=== PATIENT | male | born 1950 | race Caucasian/White ===

== ENCOUNTER 2023-08-12 12:33 | Emergency (ER) | payer MEDICARE, SELFPAY ==
[2023-08-12 12:34] VITALS: BP 137/76; PULSE 89; RESP 18; TEMP 36.9; O2SAT 97; BMI 27.2
--- NOTE | 2023-08-12 12:40 | PC.NURSE ---
DR DALTON AT BEDSIDE
--- NOTE | 2023-08-12 12:41 | XR_ITS ---
PROCEDURE INFORMATION: Exam: XR Chest Exam date and time: 08/12/2023 12:42 PM Age: 72 years old Clinical indication: Shortness of breath; Additional info: SOB TECHNIQUE: Imaging protocol: Radiologic exam of the chest. Views: 1 view. COMPARISON: No relevant prior studies available. FINDINGS: Lungs: Coarse reticulonodular opacities and peribronchial thickening are present in both lungs. No confluent airspace consolidation or nodules. Pleural spaces: No pleural effusion. No pneumothorax. Heart/Mediastinum: No abnormalities. No cardiomegaly. No pulmonary vascular congestion. Bones/joints: No fractures or bone lesions. IMPRESSION: Coarse interstitial opacities in both lungs could be due to viral or atypical pneumonia or chronic interstitial lung disease.
[2023-08-12 12:46] LABS: Influenza A, PCR Not Detected (NotDetected); Influenza B, PCR Not Detected (NotDetected)
--- NOTE | 2023-08-12 12:48 | PC.NURSE ---
XR AT BEDSIDE
--- NOTE | 2023-08-12 12:49 | HMH.EDGENADL ---
Discharge Plan Disposition Patient Disposition: Home, Self-Care Prescriptions Prescriptions: New doxycycline hyclate 100 mg capsule 100 mg PO BID 7 Days Qty: 14 0RF Referrals Follow up/Referrals: Provider,Referral, MD [Referring] - See instructions Activity Restrictions/Add. Instructions Additional Instructions/Restrictions: At this time it was felt you are safe to be discharged home. If new or worsening symptoms please do not hesitate to return the emergency department. Please follow-up with your family doctor as soon as you are able, midweek at the latest. Your family doctor needs to recheck your kidney function which was slightly off today but not dangerous and your sugar which was elevated. Please take your antibiotics as prescribed. With your inhaler at home please take 4 puffs every 3 hours as needed for wheezing. Clinical Impressions Clinical Impression: Acute interstitial pneumonia, Creatinine elevation, Hyperglycemia Discharge ED Provider: Amos Khalil General Adult HPI General Chief complaint: Upper Respiratory Infection Stated complaint: cough, congestion, h/a Time Seen by Provider: 08/12/23 12:40 Mode of Arrival: Ambulatory Source of Information: Patient Limitations: No Limitations Description of Symptoms (Recalled from ER Triage Doc. by RN): Patient reports cough and congestion for two weeks. States he was seen two weeks ago in [place] and diagnosed with Bronchitis. States they prescribed him steroids for three days and he just hasn't gotten any better. History of Present Illness HPI narrative: Patient is a 72-year-old male with no pertinent past medical history who presents emergency department for evaluation of shortness of breath and cough. Onset was subacute, over the last 2 weeks. Patient has had persistent cough and congestion. No chest pain, no vomiting, no diarrhea. He presented to outside clinic where he was diagnosed with bronchitis given 3 days of steroids for which his symptoms are refractory. Due to persistent symptoms he presents here for continued evaluation. Related Data Previous Rx's Medication Instructions Recorded doxycycline hyclate 100 mg capsule 100 mg PO BID 7 days #14 caps 08/12/23 Allergies Allergy/AdvReac Type Severity Reaction Status Date / Time No Known Allergies Allergy Verified 08/12/23 12:45 [facility] Disclaimer: The information contained in this section may have been updated after the patient was seen, as this information can be updated by other users. 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 Smoking Status: Unknown if ever smoked alcohol intake: never current occupational status: other Travel in the last 8 weeks: None ROS Obtained: Yes Systems reviewed as appropriate & no additional complaints except as documented Physical Exam General General appearance: alert and in no apparent distress Head Head exam: atraumatic and normocephalic Eye Eye exam: Present PERRL and EOMI ENT ENT exam: Present mucous membranes moist Neck Neck exam: Present normal inspection Chest Chest inspection: Present normal inspection and symmetric chest wall rise Respiratory Respiratory exam: Present wheezes (Posterior); Absent respiratory distress Cardiovascular Cardiovascular exam: Present normal rhythm and tachycardia Abdominal Exam Abdominal exam: Present soft Extremities Exam Extremities exam: Present normal inspection Neurological Exam Neurological exam: Present alert Psychiatric Psychiatric exam: Present normal affect Skin Skin exam: Present warm and dry Medical Decision Making Chris Inquiry Pt receiving controlled substance: No Vital Signs: 08/12/23 12:34 Temperature 98.4 F Temperature Source Oral Pulse Rate [Radial] 89 Respiratory Rate 18 Blood Pressure [Right Arm] 137/76 Blood Pressure Mean [Right Arm] 96 Blood Pressure Source [Right Arm] Automatic Cuff Blood Pressure Position [Right Arm] Sitting 02 Sat by Pulse Oximetry 97 Oxygen Delivery Method Room Air Lab Data Lab Results 08/12/23 13:00: WBC 10.9 H, RBC 5.03, Hgb 15.9, Hct 48.1, MCV 95.7 H, MCH 31.6 H, MCHC 33.0, RDW 13.8, Plt Count 192, MPV 9.8, Neut % (Auto) 77.6, Lymph % (Auto) 14.8, Gaston % (Auto) 5.4, Eos % (Auto) 2.0, Baso % (Auto) 0.2, Neut # (Auto) 8.4 H, Lymph # (Auto) 1.6, Gaston # (Auto) 0.6, Eos # (Auto) 0.2, Baso # (Auto) 0.0, Sodium 135 L, Potassium 4.1, Chloride 103, Carbon Dioxide 31 H, Anion Gap 5.1, BUN 11, Creatinine 1.40 H, Estimated Creat Clear 59, Estimated GFR 50 L, Est GFR ( Amer) 60, Glucose 262 H, Calcium 9.1, Total Bilirubin 1.1, AST 24, ALT 26, Alkaline Phosphatase 125, Troponin I < 0.01, Total Protein 7.3, Albumin 3.9, Globulin 3.4 H, Albumin/Globulin Ratio 1.1 08/12/23 13:00 08/12/23 13:00 Orders (Tests/Meds): ED MEDICATIONS Discontinued Medications Generic Name Dose Route Start Last Admin Trade Name Neville PRN Reason Stop Dose Admin Albuterol/Ipratropium 3 ml 08/12/23 12:48 08/12/23 13:03 Ipratropium/Albuterol 3 Ml Neb IH 08/12/23 12:49 3 ml ONCE ONE Administration Methylprednisolone Sodium Succinate 125 mg 08/12/23 12:48 08/12/23 13:03 Methylprednisolone Sod Succ 125mg Vial IV 08/12/23 12:49 125 mg ONCE ONE Administration ORDERS Category Date Time Status CXR --portable [XR chest portable] Stat Exams 08/12/23 12:41 Completed CBC w/Auto Diff [Complete Blood Count Auto Diff] Stat Lab 08/12/23 13:00 Completed CMP [Comprehensive Metabolic Panel] Stat Lab 08/12/23 13:00 Completed Rapid PCR Covid and Flu A/B Stat Lab 08/12/23 12:41 Received Trop I [Troponin I] Stat Lab 08/12/23 13:00 Completed Troponin I Q3H Lab 08/12/23 16:00 Ordered Troponin I Q3H Lab 08/12/23 19:00 Ordered EKG Request [ECG Request] Stat Y 08/12/23 12:48 Ordered ECG Data Tracing #1: Independently interpreted by me, rate is 100, rhythm is regular, no ST elevation in anatomical contiguous leads, slight [place] depression in the inferior leads. QTc 372. Medical Decision Narrative: In summary patient is a 72-year-old male with past medical history described above who presents emergency department for evaluation of shortness of breath and cough. Patient is hemodynamically stable nontoxic-appearing upon arrival, afebrile. Patient is slightly tachycardic. Differential diagnosis includes bronchitis, pneumonia, serial viral infections, atypical ACS, among others. Workup will be conducted with hematologic labs, chest x-ray, EKG, single troponin, viral swab. Initial inventions include DuoNeb, methylprednisolone. Workup reviewed by me, hematologic labs remarkable for hyperglycemia without elevated anion gap. This may be secondary to steroid administration however upon repeat questioning patient has been on metformin previously and is not currently. Patient has elevated creatinine of undetermined baseline which is nonactionable has it is only mild with no critical electrolyte abnormality. Initial troponin blood type limit. Patient does not have chest pain therefore second troponin is not indicated. Chest x-ray informally interpreted by me, interstitial pneumonia. Given this patient will be discharged with a course of doxycycline, has a metered-dose inhaler at home. Critical Care Critical Care Time Critical Care Time: No
--- NOTE | 2023-08-12 12:56 | ECG_ITS ---
APPROVED REPORT Exam: Resting ECG HR:100 bpm ECG Measurements Heart Rate 100 AXES NH 170 P 53 QRSd 81 QRS 21 QT 315 T 61 QTc 372 Conclusion SINUS TACHYCARDIA NONSPECIFIC T-WAVE ABNORMALITY ABNORMAL RHYTHM ECG UNCONFIRMED REPORT Electronically signed by : Ky Malagon MD 08/13/2023 15:55:00
[2023-08-12] MEDS: METHYLPREDNISOLONE SOD SUCC 125MG VIAL 125 MG IV (13:03)
[2023-08-12] MEDS: IPRATROPIUM/ALBUTEROL 3 ML NEB IH (13:03)
[2023-08-12 13:10] LABS: Basophils % 0.2 % (0.1-2.0); Eosinophils # 0.2 K/mm3 (0.0-0.4); Hematocrit 48.1 % (42.0-52.0); Hemoglobin 15.9 g/dL (14.1-18.0); Lymphocytes # 1.6 K/mm3 (0.7-4.5); Lymphocytes % 14.8 % (10-50); Mean Corpuscular Hemoglobin 31.6 pg (27.0-31.2); Mean Corpuscular Volume 95.7 fl (80-94); Mean Platelet Volume 9.8 fl (7.4-10.4); Monocytes # 0.6 K/mm3 (0.1-1.0); Monocytes % 5.4 % (1.7-9.3); Neutrophils # 8.4 K/mm3 (1.8-7.8); Neutrophils % 77.6 % (37.0-80.0); Platelet Count 192 K/mm3 (142-424); Red Blood Count 5.03 M/mm3 (4.60-6.20); Red Cell Distribution Width 13.8 % (11.5-17.5); White Blood Count 10.9 K/mm3 (4.8-10.8)
[2023-08-12 13:15] LABS: Chloride 103 mmol/L (98-107); Sodium 135 mmol/L (136-145)
[2023-08-12 13:16] LABS: Potassium 4.1 mmoL/L (3.5-5.1)
[2023-08-12 13:18] LABS: Alanine Aminotransferase 26 U/L (12-78); Albumin Level 3.9 g/dl (3.5-5.0); Albumin/Globulin Ratio 1.1 (1.1-1.8); Alkaline Phosphatase 125 U/L (38-126); Anion Gap 5.1 mEq/L (5-15); Aspartate Amino Transferase 24 U/L (17-59); Bilirubin,Total 1.1 mg/dl (0.2-1.3); Blood Urea Nitrogen 11 mg/dl (9-20); Calcium 9.1 mg/dl (8.4-10.2); Carbon Dioxide 31 mmol/L (22.0-30.0); Creatinine Clearance Estimated 59 mL/min (50-200); Estimated Glomerular Filt Rate 50 ml/min (>60); GFR (African American) 60 ML/MIN (>60); Globulin 3.4 g/dL (1.3-3.2); Glucose 262 mg/dl (74-100); Total Protein,Serum 7.3 g/dl (6.3-8.2)
--- NOTE | 2023-08-12 13:25 | PC.NURSE ---
Rounded on pt. No needs or complaints voiced. Call light within reach.
[2023-08-12 13:31] LABS: Troponin I < 0.01 ng/ml (0.00-0.034)
--- NOTE | 2023-08-12 13:37 | PC.NURSE ---
DR DALTON AT BEDSIDE TO UPDATE PT ON POC
[2023-08-12 13:55] LABS: Coronavirus 19, PCR Detected (NotDetected)
[2023-08-12 13:58] VITALS: BP 126/72; PULSE 82; RESP 20; TEMP 36.7; O2SAT 99
== END 2023-08-12 13:59 | disposition home or self-care (01) ==
PROVIDERS: Emergency Provider Emergency Medicine; PCP Nurse Practitioner Family
DX: J18.9 Pneumonia, unspecified organism (principal); R94.4 Abnormal results of kidney function studies; R73.9 Hyperglycemia, unspecified; R05.9 Cough, unspecified; R09.81 Nasal congestion; R06.02 Shortness of breath
CPT/HCPCS: 71045; 80053; 84484; 85025; 87636; 93005; 96374; 99285

== ENCOUNTER 2023-10-11 16:03 | Outpatient (CLI) | payer MEDICARE, SELFPAY ==
--- NOTE | 2023-10-11 16:08 | XR_ITS ---
FINAL REPORT TECHNIQUE: Chest PA & Lateral CLINICAL HISTORY: PNEUMONIA COMPARISON: 09/06/2023 FINDINGS: 2 views of the chest were performed. The heart size is mildly enlarged. The mediastinum is within normal limits. There is no acute cardiopulmonary process. There is coarse interstitial opacity at the lung bases, likely chronic. There are no pleural effusions. There is no pneumothorax. The bony thorax appears intact. IMPRESSION: Probable chronic coarse interstitial opacity at the lung bases. Reviewed, Interpreted and Dictated by Buzz Brothers MD Transcribed by Sania Eli Authenticated and [facility]
== END 2023-10-11 23:59 | disposition home or self-care (01) ==
LOC: RAD 16:04
PROVIDERS: PCP Nurse Practitioner Family; Visit Provider Nurse Practitioner Family
DX: J18.9 Pneumonia, unspecified organism (principal); Z87.891 Personal history of nicotine dependence
CPT/HCPCS: 71046

== ENCOUNTER 2023-10-18 16:18 | Emergency (ER) | payer MEDICARE, SELFPAY ==
[2023-10-18 17:40] VITALS: BP 130/69; PULSE 64; RESP 19; TEMP 36.9; O2SAT 97; BMI 32.5
[2023-10-18 18:12] LABS: UTC Strep Screen (Rapid) Negative (Negative)
--- NOTE | 2023-10-18 18:19 | EXP.UTC ---
Discharge Plan Disposition Patient Disposition: Home, Self-Care Condition: Good Prescriptions Prescriptions: New amoxicillin 500 mg tablet 500 mg PO BID 10 Days Qty: 20 0RF No Action atorvastatin 40 mg tablet 40 mg PO DAILY Patient Comments: TAKE 1 TABLET BY MOUTH EVERY DAY AT NIGHT olanzapine [Zyprexa] 5 mg tablet 5 mg PO DAILY Patient Comments: 1 tablet by mouth every night hydrocodone-acetaminophen 7.5-325 mg tablet See Rx Instructions .ROUTE .COMPLEX Rx Instructions: see rx levothyroxine [Synthroid] 125 mcg tablet 125 mcg PO DAILY Patient Comments: TAKE ONE TABLET BY MOUTH EVERY MORNING albuterol sulfate 90 mcg/actuation HFA aerosol inhaler See Rx Instructions .ROUTE .COMPLEX Patient Comments: INHALE 2 PUFFS INHALATION ROUTE EVERY 6 HOURS Rx Instructions: INHALE 2 PUFFS INHALATION ROUTE EVERY 6 HOURS Referrals Follow up/Referrals: Provider,Referral, MD [Primary Care Provider] - See instructions Activity Restrictions/Add. Instructions Additional Instructions/Restrictions: Start antibiotics today be sure to take it as ordered with the full length of time although you should start feeling better in 24-48 hours. Change toothbrush and toothpaste 24-48 hours after starting antibiotics Tylenol or Motrin as needed for fever or pain Encourage fluids, water, Gatorade, Powerade, try cold fluids, popsicles, ice cream will make it feel better You are contagious for 24 hours. Avoid kissing anyone, no eating or drinking after anyone. You are contagious. Follow-up the ER for new or worsening symptoms or no noticeable improvement over the next 24-48 hours. Follow-up with PCP this week. Clinical Impressions Clinical Impression: Strep sore throat Instructions Patient Instructions: DI for Strep Throat Discharge ED Provider: Nydia ([facility] [place])Kiera [facility] [place] HPI General Stated complaint: throat sores Mode of Arrival: Ambulatory Source of Information: Patient Limitations: No Limitations Time Seen by Provider: 10/18/23 18:19 Description of Symptoms (Recalled from Triage Doc. by RN): Pt's symptoms are sore throat. HEENT Symptoms (Recalled from RN notes): Yes Resp Symptoms (Recalled from RN notes): No Skin Symptoms (Recalled from RN notes): No MS Symptoms (Recalled from RN notes): No Functional Status (Recalled from RN notes): n/a History of Present Illness Provider Complaint: 73 yr old male presents for sore throat, grandchild has strep Related Data Home Medications Medication Instructions Recorded Confirmed albuterol sulfate 90 mcg/actuation See Rx Instructions .Route .COMPLEX 10/18/23 10/18/23 aerosol inhaler atorvastatin 40 mg tablet 40 mg PO DAILY 10/18/23 10/18/23 hydrocodone 7.5 mg-acetaminophen See Rx Instructions .Route .COMPLEX 10/18/23 10/18/23 325 mg tablet levothyroxine 125 mcg tablet 125 mcg PO DAILY 10/18/23 10/18/23 (Synthroid) olanzapine 5 mg tablet (Zyprexa) 5 mg PO DAILY 10/18/23 10/18/23 Previous Rx's Medication Instructions Recorded amoxicillin 500 mg tablet 500 mg PO BID 10 days #20 tabs 10/18/23 Allergies Allergy/AdvReac Type Severity Reaction Status Date / Time No Known Allergies Allergy Verified 10/18/23 17:52 Worker's Comp Is this a Worker's Comp case?: No [facility] Disclaimer: The information contained in this section may have been updated after the patient was seen, as this information can be updated by other users. 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 , [employer]) Smoking Status: Unknown if ever smoked alcohol intake: never current occupational status: other Travel in the last 8 weeks: None ROS Obtained: Yes All systems reviewed & no additional complaints except as documented Constitutional Constitutional: Reports system reviewed and no additional complaints, except as documented Eyes Eyes: Reports system reviewed and no additional complaints, except as documented ENT Ears, Nose, Mouth, and Throat: Reports system reviewed and no additional complaints, except as documented, Reports as per HPI and Reports sore throat Cardiovascular Cardiovascular: Reports system reviewed and no additional complaints, except as documented Respiratory Respiratory: Reports system reviewed and no additional complaints, except as documented Gastrointestinal Gastrointestingal: Reports system reviewed and no additional complaints, except as documented Musculoskeletal Musculoskeletal: Reports system reviewed and no additional complaints, except as documented Integumentary/Breasts Skin/Breast: Reports system reviewed and no additional complaints, except as documented Neurologic Neurologic: Reports system reviewed and no additional complaints, except as documented Endocrine Endocrine: Reports system reviewed and no additional complaints, except as documented Hematologic/Lymphatic Henatologic/Lymphatic: Reports system reviewed and no additional complaints, except as documented Allergic/Immunologic Allergic/Immunologic: Reports system reviewed and no additional complaints, except as documented Physical Exam General General appearance: alert and in no apparent distress Head Head exam: atraumatic Eye Eye exam: Present normal appearance and PERRL ENT ENT exam: Present mucous membranes moist and TM's normal bilaterally Expanded ENT Exam Throat exam: Present tonsillar erythema and tonsillar exudate Respiratory Respiratory exam: Present normal lung sounds bilaterally Cardiovascular Cardiovascular exam: Present regular rate and normal rhythm Neurological Exam Neurological exam: Present alert and oriented X3 Skin Skin exam: Present warm and intact Medical Decision Making Medical Records Medical records reviewed: Yes I reviewed the patient's medical records. Chris Inquiry Pt receiving controlled substance: No Chris was queried for this patient: No Vital Signs: 10/18/23 17:40 Temperature 98.5 F Temperature Source Oral Pulse Rate [Right Radial] 64 Respiratory Rate 19 Blood Pressure [Right Arm] 130/69 Blood Pressure Mean [Right Arm] 89 Blood Pressure Source [Right Arm] Automatic Cuff Blood Pressure Position [Right Arm] Sitting 02 Sat by Pulse Oximetry 97 Oxygen Delivery Method Room Air Lab Data Lab results reviewed: Yes I reviewed the patient's lab results. Lab Results 10/18/23 17:39: Strep Scn Rapid Clinic Negative Orders (Tests/Meds): ORDERS Category Date Time Status Strep Screen Confirmation Stat Micro 10/18/23 17:39 Received
[2023-10-18 18:39] VITALS: BP 130/69; PULSE 64; RESP 19; TEMP 36.9; O2SAT 97
== END 2023-10-18 18:39 | disposition home or self-care (01) ==
PROVIDERS: Emergency Provider Nurse Practitioner Family
DX: J02.0 Streptococcal pharyngitis (principal); R07.0 Pain in throat
CPT/HCPCS: 87880; 99204; 99212; G0463

== ENCOUNTER 2023-10-22 16:57 | Emergency (ER) | payer MEDICARE, SELFPAY ==
[2023-10-22 16:58] VITALS: BP 148/88; PULSE 71; RESP 19; TEMP 36.8; O2SAT 98; BMI 27.5
--- NOTE | 2023-10-22 17:08 | XR_ITS ---
PROCEDURE INFORMATION: Exam: XR Chest Exam date and time: 10/22/2023 5:17 PM Age: 73 years old Clinical indication: Shortness of breath; Additional info: Shortness of breath, history pna recently treated TECHNIQUE: Imaging protocol: Radiologic exam of the chest. Views: 1 view. COMPARISON: CR XR CHEST 2V 10/11/2023 4:10 PM FINDINGS: Lungs: Interstitial opacities bilaterally concerning for interstitial pneumonia. Pleural spaces: Unremarkable. No pleural effusion. No pneumothorax. Heart/Mediastinum: Unremarkable. No cardiomegaly. Bones/joints: Unremarkable. IMPRESSION: Moderate interstitial pneumonia
[2023-10-22 17:10] VITALS: BMI 27.6
--- NOTE | 2023-10-22 17:11 | ECG_ITS ---
APPROVED REPORT Exam: Resting ECG HR:76 bpm ECG Measurements Heart Rate 76 AXES AR 205 P 46 QRSd 90 QRS 36 QT 358 T 38 QTc 389 Conclusion SINUS RHYTHM WITH OCCASIONAL VENTRICULAR PREMATURE COMPLEXES Electronically signed by : MAC MANCILLA, 10/22/2023 18:09:21
[2023-10-22 17:21] LABS: Basophils % 0.3 % (0.1-2.0); Chloride 111 mmol/L (98-107); Eosinophils # 0.3 K/mm3 (0.0-0.4); Eosinophils % 2.8 % (0.1-12.0); Hematocrit 46.6 % (42.0-52.0); Hemoglobin 15.7 g/dL (14.1-18.0); Lymphocytes # 2.7 K/mm3 (0.7-4.5); Lymphocytes % 24.2 % (10-50); Mean Corpuscular HGB Conc 33.6 g/dL (31.8-35.4); Mean Corpuscular Hemoglobin 30.7 pg (27.0-31.2); Mean Corpuscular Volume 91.3 fl (80-94); Mean Platelet Volume 9.8 fl (7.4-10.4); Monocytes # 0.5 K/mm3 (0.1-1.0); Monocytes % 4.4 % (1.7-9.3); Neutrophils # 7.6 K/mm3 (1.8-7.8); Neutrophils % 68.3 % (37.0-80.0); Platelet Count 217 K/mm3 (142-424); Red Cell Distribution Width 14.1 % (11.5-17.5); Sodium 141 mmol/L (136-145); White Blood Count 11.1 K/mm3 (4.8-10.8)
[2023-10-22 17:23] LABS: Alanine Aminotransferase 22 U/L (12-78); Alkaline Phosphatase 128 U/L (38-126); Aspartate Amino Transferase 29 U/L (17-59); Bilirubin,Total 0.7 mg/dl (0.2-1.3); Blood Urea Nitrogen 11 mg/dl (9-20); Creatinine Clearance Estimated 69 mL/min (50-200); Estimated Glomerular Filt Rate 60 ml/min (>60); GFR (African American) 72 ML/MIN (>60)
[2023-10-22 17:24] LABS: Albumin/Globulin Ratio 1.3 (1.1-1.8); Calcium 9.6 mg/dl (8.4-10.2); Carbon Dioxide 25 mmol/L (22.0-30.0); Globulin 3.1 g/dL (1.3-3.2); Glucose 102 mg/dl (74-100); Total Protein,Serum 7.1 g/dl (6.3-8.2)
[2023-10-22 17:30] VITALS: BP 134/86; PULSE 71; O2SAT 96
[2023-10-22 17:37] LABS: Troponin I < 0.01 ng/ml (0.00-0.034)
[2023-10-22 18:00] VITALS: BP 132/77; PULSE 66; O2SAT 97
--- NOTE | 2023-10-22 18:01 | [facility]H.EDCP ---
Discharge Plan Disposition Patient Disposition: Home, Self-Care Condition: Good Prescriptions Prescriptions: New doxycycline hyclate 100 mg capsule 100 mg PO Q12H 14 Days Qty: 28 0RF No Action atorvastatin 40 mg tablet 40 mg PO DAILY Patient Comments: TAKE 1 TABLET BY MOUTH EVERY DAY AT NIGHT olanzapine [Zyprexa] 5 mg tablet 5 mg PO DAILY Patient Comments: 1 tablet by mouth every night hydrocodone-acetaminophen 7.5-325 mg tablet See Rx Instructions .ROUTE .COMPLEX Rx Instructions: see rx levothyroxine [Synthroid] 125 mcg tablet 125 mcg PO DAILY Patient Comments: TAKE ONE TABLET BY MOUTH EVERY MORNING albuterol sulfate 90 mcg/actuation HFA aerosol inhaler See Rx Instructions .ROUTE .COMPLEX Patient Comments: INHALE 2 PUFFS INHALATION ROUTE EVERY 6 HOURS Rx Instructions: INHALE 2 PUFFS INHALATION ROUTE EVERY 6 HOURS amoxicillin 500 mg tablet 500 mg PO BID 10 Days Qty: 20 0RF Referrals Follow up/Referrals: Clara Sawant APRN [Primary Care Provider] - See instructions Activity Restrictions/Add. Instructions Additional Instructions/Restrictions: Take doxycycline as prescribed and follow-up closely with your primary care provider for continued evaluation and management, return for any new or worsening symptoms. Clinical Impressions Clinical Impression: Acute interstitial pneumonia Instructions Patient Instructions: Pneumonia-Adult Discharge ED Provider: Clara Bond HPI General Chief Complaint: Shortness of Breath/Dyspnea Stated Complaint: Dry mouth , SOA Time Seen by Provider: 10/22/23 17:01 Mode of Arrival: Family Vehicle Source of Information: Patient Limitations: No Limitations Description of Symptoms (Recalled from ER Triage Doc. by RN): Pt c/o sore throat, dry mouth, and cough for close to a month . States he was treated for PNA . States he was around a family member who was positive for strep and is currently being tx'ed with amoxicillin for that exsposure despite being negative on swab and culture. States he was also taken off his diabetic medicines a few months ago d/t losing too much weight . He has not been checking his blood sugars. Denies any fever, chest pain, or n/v/d. History of Present Illness HPI narrative: Patient is a 73-year-old male with past medical history hyperglycemia and acute interstitial pneumonia recently treated with a course of amoxicillin presenting with sore throat, cough for a month and shortness of breath. Patient states that he has had a cough for approximately 1 month and this was not worse today but his mouth seems to be dry prompting his presentation. He was recently treated for pneumonia with a course of amoxicillin and also for reported contact with strep positive family member despite his swab being negative. He was recently taken off of his metformin and is not on any other diabetic medications. He denies any fevers, chest pain, nausea, vomiting, diarrhea. Related Data Home Medications Medication Instructions Recorded Confirmed albuterol sulfate 90 mcg/actuation See Rx Instructions .Route .COMPLEX 10/18/23 10/18/23 aerosol inhaler atorvastatin 40 mg tablet 40 mg PO DAILY 10/18/23 10/18/23 hydrocodone 7.5 mg-acetaminophen See Rx Instructions .Route .COMPLEX 10/18/23 10/18/23 325 mg tablet levothyroxine 125 mcg tablet 125 mcg PO DAILY 10/18/23 10/18/23 (Synthroid) olanzapine 5 mg tablet (Zyprexa) 5 mg PO DAILY 10/18/23 10/18/23 Previous Rx's Medication Instructions Recorded amoxicillin 500 mg tablet 500 mg PO BID 10 days #20 tabs 10/18/23 doxycycline hyclate 100 mg capsule 100 mg PO Q12H 14 days #28 caps 10/22/23 Allergies Allergy/AdvReac Type Severity Reaction Status Date / Time No Known Allergies Allergy Verified 10/18/23 17:52 [facility] Disclaimer: The information contained in this section may have been updated after the patient was seen, as this information can be updated by other users. 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: Former smoker alcohol intake: never current occupational status: other Travel in the last 8 weeks: None ROS Obtained: Yes Systems reviewed as appropriate & no additional complaints except as documented Physical Exam General General appearance: alert, in no apparent distress and other (Occasional productive cough) Head Head exam: atraumatic and normocephalic Eye Eye exam: Present PERRL and EOMI ENT ENT exam: Present mucous membranes moist Chest Chest inspection: Present normal inspection and symmetric chest wall rise Respiratory Respiratory exam: Present normal lung sounds bilaterally; Absent respiratory distress Cardiovascular Cardiovascular exam: Present regular rate and normal rhythm Abdominal Exam Abdominal exam: Present soft; Absent tenderness Extremities Exam Extremities exam: Present normal inspection Neurological Exam Neurological exam: Present alert and oriented X3 Skin Skin exam: Present warm and dry HEART Score HEART Score HEART Score assessment performed?: Yes History (anamnesis): Slightly suspicious ECG: Normal Age: >65 years Risk factors: 1-2 risk factors Troponin: </= normal limit HEART Score: 3 Critical Care Critical Care Time Critical Care Time: No Medical Decision Making Medical Records Medical records reviewed: Yes I reviewed the patient's medical records. Chris Inquiry Pt receiving controlled substance: No Vital Signs Vital Signs: 10/22/23 16:58 Temperature 98.2 F Temperature Source Oral Pulse Rate [Left] 71 Respiratory Rate 19 Blood Pressure [Right Arm] 148/88 H Blood Pressure Mean [Right Arm] 108 Blood Pressure Source [Right Arm] Automatic Cuff 02 Sat by Pulse Oximetry 98 Oxygen Delivery Method Room Air Lab Data Lab results reviewed: Yes I reviewed the patient's lab results. Labs: Lab Results 10/22/23 17:09: WBC 11.1 H, RBC 5.10, Hgb 15.7, Hct 46.6, MCV 91.3, MCH 30.7, MCHC 33.6, RDW 14.1, Plt Count 217, MPV 9.8, Neut % (Auto) 68.3, Lymph % (Auto) 24.2, [place] % (Auto) 4.4, Eos % (Auto) 2.8, Baso % (Auto) 0.3, Neut # (Auto) 7.6, Lymph # (Auto) 2.7, [place] # (Auto) 0.5, Eos # (Auto) 0.3, Baso # (Auto) 0.0, Sodium 141, Potassium 4.0, Chloride 111 H, Carbon Dioxide 25, Anion Gap 9.0, BUN 11, Creatinine 1.20, Estimated Creat Clear 69, Estimated GFR 60, Est GFR ( Amer) 72, Glucose 102 H, Calcium 9.6, Total Bilirubin 0.7, AST 29, ALT 22, Alkaline Phosphatase 128 H, Troponin I < 0.01, Total Protein 7.1, Albumin 4.0, Globulin 3.1, Albumin/Globulin Ratio 1.3 10/22/23 17:09 10/22/23 17:09 Response Orders (Tests/Meds): ED MEDICATIONS Generic Name Dose Route Start Last Admin Trade Name Freq PRN Reason Stop Dose Admin Sodium Chloride 10 ml 10/22/23 17:11 Sodium Chloride 0.9% 10ml Flush Syringe IV 11/21/23 17:10 NEEDED PRN Maintain IV Site ORDERS Category Date Time Status XR chest portable Stat Exams 10/22/23 17:08 Taken CBC w/Auto Diff [Complete Blood Count Auto Diff] Stat Lab 10/22/23 17:09 Completed CMP [Comprehensive Metabolic Panel] Stat Lab 10/22/23 17:09 Completed Trop I [Troponin I] Stat Lab 10/22/23 17:09 Completed ECG Data Tracing #1: Attestation: I reviewed this ECG and interpreted as documented below: ECG Narrative: Normal sinus rhythm at a rate of 76 with occasional PVC, no acute ischemia or infarction ECG initial impression date: 10/22/23 ECG initial impression time: 17:05 Normal Sinus Rhythm: Yes MDM Narrative Medical Decision Narrative: Patient is a 73-year-old male with past medical history hyperglycemia and recent acute interstitial pneumonia status post treatment with amoxicillin now presenting with 1 month of cough now with worsening dry mouth. He denies any chest pain, fevers, chills, abdominal pain, nausea, vomiting. He denies any history of lung issues or cardiac issues, denies history of [place]. He is exposed to smoke in his household. Lung sounds present bilaterally without wheezing or rhonchi but he does have a frequent productive cough on exam. EKG performed at bedside on initial evaluation without acute ischemia or infarction and patient never did have complaint of chest pain. He is hemodynamically stable with oxygen saturation 94% on room air. Will obtain blood work and chest x-ray for further evaluation. CBC with slight leukocytosis to 11, CMP nonactionable, troponin negative and no need for repeat as he never did have complaint of chest pain despite 1 month history of cough and dry mouth. Notably he is not significant hyperglycemic on labs. Chest x-ray does seem to show a possible developing bronchitis per my read for which we will treat with course of doxycycline considering patient's history and symptoms as well as cough on exam. X-ray chest read concerning for interstitial pneumonia. He is 99% on room air and hemodynamically stable. Prescription for doxycycline sent to preferred pharmacy with first dose given here. To follow-up with PCP and discharged in stable condition.
--- NOTE | 2023-10-22 18:28 | PC.NURSE ---
DR MANCILLA AT BEDSIDE TO UPDATE PT AND FAMILY
[2023-10-22 18:30] VITALS: BP 137/75; PULSE 63; O2SAT 99
[2023-10-22] MEDS: DOXYCYCLINE HYCL 100 MG TABLET PO (18:35)
[2023-10-22 18:40] VITALS: BP 137/75; PULSE 64; RESP 18; TEMP 36.7; O2SAT 98
== END 2023-10-22 18:40 | disposition home or self-care (01) ==
PROVIDERS: Emergency Provider Emergency Medicine; PCP Nurse Practitioner Family
DX: J84.9 Interstitial pulmonary disease, unspecified (principal); I49.3 Ventricular premature depolarization; R06.02 Shortness of breath; R07.0 Pain in throat; R05.9 Cough, unspecified; Z87.891 Personal history of nicotine dependence
CPT/HCPCS: 71045; 80053; 84484; 85025; 93005; 99284

== ENCOUNTER 2024-03-06 16:30 | Emergency (ER) | payer MEDICARE, SELFPAY ==
[2024-03-06 16:32] VITALS: BP 136/81; PULSE 89; RESP 13; TEMP 36.7; O2SAT 96; BMI 27.5
--- NOTE | 2024-03-06 16:35 | ED_ITS ---
<Statement entered by Cristal Koch DO - 03/06/24 18:08> I was consulted by the MAGALIE, and we discussed the complexity of the problems being addressed. I approved the treatment and management plan for this patient's care in the emergency department, thus performing a substantive portion of the medical decision making. Cristal Koch DO Discharge Plan Disposition Patient Disposition: Home, Self-Care Condition: Good Prescriptions Prescriptions: No Action doxycycline hyclate 100 mg capsule 100 mg PO Q12H 14 Days Qty: 28 0RF atorvastatin 40 mg tablet 40 mg PO DAILY Patient Comments: TAKE 1 TABLET BY MOUTH EVERY DAY AT NIGHT olanzapine [Zyprexa] 5 mg tablet 5 mg PO DAILY Patient Comments: 1 tablet by mouth every night hydrocodone-acetaminophen 7.5-325 mg tablet See Rx Instructions .ROUTE .COMPLEX Rx Instructions: see rx levothyroxine [Synthroid] 125 mcg tablet 125 mcg PO DAILY Patient Comments: TAKE ONE TABLET BY MOUTH EVERY MORNING albuterol sulfate 90 mcg/actuation HFA aerosol inhaler See Rx Instructions .ROUTE .COMPLEX Patient Comments: INHALE 2 PUFFS INHALATION ROUTE EVERY 6 HOURS Rx Instructions: INHALE 2 PUFFS INHALATION ROUTE EVERY 6 HOURS amoxicillin 500 mg tablet 500 mg PO BID 10 Days Qty: 20 0RF Referrals Follow up/Referrals: Provider,Referral, MD [Primary Care Provider] - See instructions Activity Restrictions/Add. Instructions Additional Instructions/Restrictions: As we discussed follow the disimpaction form that I gave you and get a 32 ounce bottle of Gatorade putting 10 capfuls of MiraLAX then drink all of it. If no success please follow-up with your PCP for further workup. Clinical Impressions Clinical Impression: Constipation Qualifiers: Constipation type: unspecified constipation type Qualified Code(s): K59.00 - Constipation, unspecified Instructions Patient Instructions: DI for Constipation Print Language Print Language: Japanese Discharge ED Provider: Cristal Koch General Adult HPI General Chief complaint: PAIN Stated complaint: No Bowel movements Time Seen by Provider: 03/06/24 16:34 History of Present Illness HPI narrative: Patient presents for evaluation of constipation. Patient states that he has not had a bowel movement in the last 3 days. He however is tolerating both food and drink, passing flatus, has never had surgery on his abdomen. He denies fever chills hemoptysis hematochezia melena hematemesis hematuria. Related Data Home Medications ?Medication ?Instructions ?Recorded ?Confirmed albuterol sulfate 90 mcg/actuation See Rx Instructions .Route .COMPLEX 10/18/23 10/18/23 aerosol inhaler atorvastatin 40 mg tablet 40 mg PO DAILY 10/18/23 10/18/23 hydrocodone 7.5 mg-acetaminophen See Rx Instructions .Route .COMPLEX 10/18/23 10/18/23 325 mg tablet levothyroxine 125 mcg tablet 125 mcg PO DAILY 10/18/23 10/18/23 (Synthroid) olanzapine 5 mg tablet (Zyprexa) 5 mg PO DAILY 10/18/23 10/18/23 Previous Rx's ?Medication ?Instructions ?Recorded amoxicillin 500 mg tablet 500 mg PO BID 10 days #20 tabs 10/18/23 doxycycline hyclate 100 mg capsule 100 mg PO Q12H 14 days #28 caps 10/22/23 Allergies Allergy/AdvReac Type Severity Reaction Status Date / Time No Known Allergies Allergy Verified 10/18/23 17:52 [facility] Disclaimer: The information contained in this section may have been updated after the patient was seen, as this information can be updated by other users. 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 smoker alcohol intake: never current occupational status: other Travel in the last 8 weeks: None ROS Obtained: Yes Systems reviewed as appropriate & no additional complaints except as documented Physical Exam General General appearance: alert and in no apparent distress Respiratory Respiratory exam: Present normal lung sounds bilaterally Cardiovascular Cardiovascular exam: Present regular rate Rectal Exam Rectal exam: Present normal inspection and normal rectal tone; Absent hemorrhoids or mass Neurological Exam Neurological exam: Present alert and oriented X3 Medical Decision Making Medical Records Screening: Per USPSTF and CDC recommendations, given the prevalence of disease in our region, it is our hospital?s policy to screen for HIV and viral Hepatitis for all patients aged 18 and over and those with ongoing risk factors. Chris Inquiry Pt receiving controlled substance: No Vital Signs: 03/06/24 16:32 Temperature 98.0 F Temperature Source Oral Pulse Rate [Left Radial] 89 Respiratory Rate 13 Blood Pressure [Right Arm] 136/81 Blood Pressure Mean [Right Arm] 99 02 Sat by Pulse Oximetry 96 Oxygen Delivery Method Room Air Medical Decision Narrative: In summary patient is a 73-year-old male who presents to the emergency department for evaluation of constipation. Patient is hemodynamically stable upon arrival, afebrile. Physical exam is remarkable for a soft abdomen with normal bowel sounds with no rebound or guarding or rigidity, rectal exam shows no evidence of mass or hemorrhoid. Differential diagnosis includes constipation versus delayed colonic transit etc. Initial workup was considered but as patient has no red flags for any acute processes is deferred. As patient is not intolerant of oral intake is passing flatus has no previous surgical history on his abdomen and has tried no bowel regimen at home, no emergent workup is indicated. Given this patient is appropriate for discharge with the disimpaction sheet and instructions explained verbally by myself to the patient. Patient instructed to follow-up with PCP if no success. Patient to return to ER for any worsening signs or symptoms as needed. Critical Care Critical Care Time Critical Care Time: No
--- NOTE | 2024-03-06 16:47 | PC.NURSE ---
Reji PIMENTEL at BS for pt eval
[2024-03-06 16:58] VITALS: BP 130/80; PULSE 88; RESP 20; TEMP 36.7; O2SAT 98
== END 2024-03-06 16:59 | disposition home or self-care (01) ==
PROVIDERS: Emergency Provider Emergency Medicine
DX: K59.00 Constipation, unspecified (principal)
CPT/HCPCS: 99282

== ENCOUNTER 2024-04-10 18:55 | Emergency (ER) | payer MEDICARE, SELFPAY ==
[2024-04-10 18:57] VITALS: BP 136/67; PULSE 85; RESP 13; TEMP 36.8; O2SAT 95; BMI 27.5
--- NOTE | 2024-04-10 19:01 | ED_ITS ---
Discharge Plan Disposition Patient Disposition: Home, Self-Care Condition: Good Prescriptions Prescriptions: No Action doxycycline hyclate 100 mg capsule 100 mg PO Q12H 14 Days Qty: 28 0RF atorvastatin 40 mg tablet 40 mg PO DAILY Patient Comments: TAKE 1 TABLET BY MOUTH EVERY DAY AT NIGHT olanzapine [Zyprexa] 5 mg tablet 5 mg PO DAILY Patient Comments: 1 tablet by mouth every night hydrocodone-acetaminophen 7.5-325 mg tablet See Rx Instructions .ROUTE .COMPLEX Rx Instructions: see rx levothyroxine [Synthroid] 125 mcg tablet 125 mcg PO DAILY Patient Comments: TAKE ONE TABLET BY MOUTH EVERY MORNING albuterol sulfate 90 mcg/actuation HFA aerosol inhaler See Rx Instructions .ROUTE .COMPLEX Patient Comments: INHALE 2 PUFFS INHALATION ROUTE EVERY 6 HOURS Rx Instructions: INHALE 2 PUFFS INHALATION ROUTE EVERY 6 HOURS amoxicillin 500 mg tablet 500 mg PO BID 10 Days Qty: 20 0RF Referrals Follow up/Referrals: Leslie Sawant APRN [Primary Care Provider] - See instructions Activity Restrictions/Add. Instructions Additional Instructions/Restrictions: Please call [phone] which is the phone number for [facility] in [place] in the morning for an appointment. You may have to get a referral from your PCP. This discharge instructions also could serve as a referral if they require it. Additionally as we discussed you need to start taking MiraLAX daily along with Metamucil or other fiber supplement to have soft stool. Clinical Impressions Clinical Impression: Anal or rectal pain Instructions Patient Instructions: DI for Anal Fissure Print Language Print Language: Japanese Discharge ED Provider: Abimael Jain General Adult HPI General Chief complaint: PAIN Stated complaint: pain in buttocks Time Seen by Provider: 04/10/24 18:59 History of Present Illness HPI narrative: Patient presents for evaluation of anal pain. Patient reports a 3-month history of anal pain. He reports it is worse when taking a bowel movement. He reports that initially started with a very difficult bowel movement 3 months ago. He has had pain ever since. It is never gone completely away but it is gotten particularly worse over the last couple days. He is not taking any [id number] stool softeners or fiber supplements. He denies any rectal bleeding. Related Data Home Medications ?Medication ?Instructions ?Recorded ?Confirmed albuterol sulfate 90 mcg/actuation See Rx Instructions .Route .COMPLEX 10/18/23 10/18/23 aerosol inhaler atorvastatin 40 mg tablet 40 mg PO DAILY 10/18/23 10/18/23 hydrocodone 7.5 mg-acetaminophen See Rx Instructions .Route .COMPLEX 10/18/23 10/18/23 325 mg tablet levothyroxine 125 mcg tablet 125 mcg PO DAILY 10/18/23 10/18/23 (Synthroid) olanzapine 5 mg tablet (Zyprexa) 5 mg PO DAILY 10/18/23 10/18/23 Previous Rx's ?Medication ?Instructions ?Recorded amoxicillin 500 mg tablet 500 mg PO BID 10 days #20 tabs 10/18/23 doxycycline hyclate 100 mg capsule 100 mg PO Q12H 14 days #28 caps 10/22/23 Allergies Allergy/AdvReac Type Severity Reaction Status Date / Time No Known Allergies Allergy Verified 10/18/23 17:52 [facility] Disclaimer: The information contained in this section may have been updated after the patient was seen, as this information can be updated by other users. 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 (Reviewed 10/18/23 @ 18:20 by Kiera Stafford (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) Smoking Status: Never smoker alcohol intake: never current occupational status: other Travel in the last 8 weeks: None ROS Obtained: Yes Systems reviewed as appropriate & no additional complaints except as documented Physical Exam General General appearance: alert and in no apparent distress Respiratory Respiratory exam: Present normal lung sounds bilaterally Cardiovascular Cardiovascular exam: Present regular rate; Absent normal heart sounds Neurological Exam Neurological exam: Present alert and oriented X3 Medical Decision Making Medical Records Medical records reviewed: Yes I reviewed the patient's medical records. Screening: Per USPSTF and CDC recommendations, given the prevalence of disease in our region, it is our hospital?s policy to screen for HIV and viral Hepatitis for all patients aged 18 and over and those with ongoing risk factors. Chris Inquiry Pt receiving controlled substance: No Vital Signs: 04/10/24 18:57 Temperature 98.2 F Temperature Source Oral Pulse Rate [Left Radial] 85 Respiratory Rate 13 Blood Pressure [Right Arm] 136/67 Blood Pressure Mean [Right Arm] 90 02 Sat by Pulse Oximetry 95 Oxygen Delivery Method Room Air Lab Data Lab results reviewed: Yes I reviewed the patient's lab results. Medical Decision Narrative: In summary patient is a 73-year-old male who presents to the emergency depa rtment for evaluation of anal pain. Patient is dynamically stable upon arrival, febrile. Zickel exam is remarkable for posterior piles but no active or visible external hemorrhoids but no visible inflamed or thrombosed hemorrhoids currently digital rectal exam reveals exquisite tenderness at the posterior rectal verge along with a very hard area about the size of a BB in the same location. There is no fluctuance noted. I cannot palpate a definitive defect. I feel no internal rectal masses. Stool was very hard however no visible blood on my glove.. Differential diagnosis includes anal fissure versus scar tissue versus possible anal mass. Initial workup will be conducted with stool for occult blood. Given this findings and his history I had interactive discussion with the patient regarding management techniques including sitz bath's fiber supplement and MiraLAX. I have referred the patient to [facility] in [place] for further evaluation as patient likely needs exam under anesthesia to adequately visualize the area. Critical Care Critical Care Time Critical Care Time: No
[2024-04-10 19:30] VITALS: BP 139/76; PULSE 80; RESP 20; TEMP 36.8; O2SAT 99
[2024-04-10 23:25] LABS: Occult Blood,Stool Negative (Negative)
== END 2024-04-10 19:31 | disposition home or self-care (01) ==
PROVIDERS: Physician Assistant; Emergency Provider Emergency Medicine; PCP Nurse Practitioner Family
DX: K62.89 Other specified diseases of anus and rectum (principal)
CPT/HCPCS: 82272; 99283; G0328

== ENCOUNTER 2024-07-27 15:14 | Emergency (ER) | payer MEDICARE, SELFPAY ==
[2024-07-27 15:33] VITALS: BP 109/65; PULSE 65; RESP 18; TEMP 36.6; O2SAT 98; BMI 25.7
--- NOTE | 2024-07-27 15:53 | EXP.UTC ---
Discharge Plan Disposition Patient Disposition: Home, Self-Care Condition: Good Prescriptions Prescriptions: New prednisone 20 mg tablet 20 mg PO BID Qty: 10 0RF No Action doxycycline hyclate 100 mg capsule 100 mg PO Q12H 14 Days Qty: 28 0RF atorvastatin 40 mg tablet 40 mg PO DAILY Patient Comments: TAKE 1 TABLET BY MOUTH EVERY DAY AT NIGHT olanzapine [Zyprexa] 5 mg tablet 5 mg PO DAILY Patient Comments: 1 tablet by mouth every night hydrocodone-acetaminophen 7.5-325 mg tablet See Rx Instructions .ROUTE .COMPLEX Rx Instructions: see rx levothyroxine [Synthroid] 125 mcg tablet 125 mcg PO DAILY Patient Comments: TAKE ONE TABLET BY MOUTH EVERY MORNING albuterol sulfate 90 mcg/actuation HFA aerosol inhaler See Rx Instructions .ROUTE .COMPLEX Patient Comments: INHALE 2 PUFFS INHALATION ROUTE EVERY 6 HOURS Rx Instructions: INHALE 2 PUFFS INHALATION ROUTE EVERY 6 HOURS amoxicillin 500 mg tablet 500 mg PO BID 10 Days Qty: 20 0RF Referrals Follow up/Referrals: Leslie Sawant APRN [Primary Care Provider] - See instructions Activity Restrictions/Add. Instructions Additional Instructions/Restrictions: Tylenol and ibuprofen as needed for pain or fever Humidifier/vaporizer/hot steamy shower Follow-up with primary care Follow-up immediately in the ER of the [facility] for new or worsening symptoms or no noticeable improvement over the next 48-72 hours. Stop smoking Inhaler every 4-6 hours as needed. Should help open airways improved cough, wheezing, shortness of breath Start steroids today. Helps with inflammation therefore coughing and wheezing. Follow directions on package. Clinical Impressions Clinical Impression: Upper respiratory infection, viral Acute bronchitis Qualifiers: Bronchitis organism: unspecified organism Qualified Code(s): J20.9 - Acute bronchitis, unspecified Instructions Patient Instructions: DI for Acute Bronchitis, DI for Viral Upper Respiratory Infection -- Adult Print Language Print Language: Portuguese Discharge ED Provider: Nydia ([facility])[place] [facility] [place] General Stated complaint: chest bakari, cough, runny nose Mode of Arrival: Ambulatory Source of Information: Patient and Spouse Time Seen by Provider: 07/27/24 15:34 Description of Symptoms (Recalled from Triage Doc. by RN): COUGHING, RUNNY NOSE, EATERY EYES, SNEEZING, ACHY CHEST HEENT Symptoms (Recalled from RN notes): Yes Resp Symptoms (Recalled from RN notes): Yes Skin Symptoms (Recalled from RN notes): No MS Symptoms (Recalled from RN notes): No Functional Status (Recalled from RN notes): WNL History of Present Illness Provider Complaint: 73-year-old male presents for coughing, runny nose, wheezing, watery eyes, sneezing, and a pain in chest with coughing. Patient states his son and [id number] had been ill but he is not sure what they had Related Data Home Medications ?Medication ?Instructions ?Recorded ?Confirmed albuterol sulfate 90 mcg/actuation See Rx Instructions .Route .COMPLEX 10/18/23 10/18/23 aerosol inhaler atorvastatin 40 mg tablet 40 mg PO DAILY 10/18/23 10/18/23 hydrocodone 7.5 mg-acetaminophen See Rx Instructions .Route .COMPLEX 10/18/23 10/18/23 325 mg tablet levothyroxine 125 mcg tablet 125 mcg PO DAILY 10/18/23 10/18/23 (Synthroid) olanzapine 5 mg tablet (Zyprexa) 5 mg PO DAILY 10/18/23 10/18/23 Previous Rx's ?Medication ?Instructions ?Recorded amoxicillin 500 mg tablet 500 mg PO BID 10 days #20 tabs 10/18/23 doxycycline hyclate 100 mg capsule 100 mg PO Q12H 14 days #28 caps 10/22/23 prednisone 20 mg tablet 20 mg PO BID #10 tabs 07/27/24 Allergies Allergy/AdvReac Type Severity Reaction Status Date / Time No Known Allergies Allergy Verified 10/18/23 17:52 Worker's Comp Is this a Worker's Comp case?: No [facility] Disclaimer: The information contained in this section may have been updated after the patient was seen, as this information can be updated by other users. 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 , [employer]) Smoking Status: Never smoker alcohol intake: never current occupational status: other Travel in the last 8 weeks: None Have you lived/traveled outside [place] in past 30 days?: No Contact w/someone who lives/traveled outside US past 30 days?: No Exposure to someone with infectious disease in past 14 days?: No Do you have a fever (greater than 100.4 F or 38 C)?: No Have you tested positive for COVID-19: No Exposed to someone with COVID-19 in past 14 days?: No Do you have a sore throat?: No Do you have a cough?: Yes Do you have any weakness?: No Do you have any diarrhea?: No Are you experiencing any unusual bleeding?: No Do you have any muscle aches/pain?: No Do you have any abdominal pain?: No Are you experiencing loss of taste or smell?: No ROS Obtained: Yes Systems reviewed as appropriate & no additional complaints except as documented Physical Exam General General appearance: alert and in no apparent distress Eye Eye exam: Present normal appearance and PERRL ENT ENT exam: Present normal exam, normal oropharynx, mucous membranes moist and TM's normal bilaterally Respiratory Respiratory exam: Present wheezes Cardiovascular Cardiovascular exam: Present regular rate and normal rhythm Neurological Exam Neurological exam: Present alert and oriented X3 Skin Skin exam: Present warm and intact Medical Decision Making Medical Records Medical records reviewed: Yes I reviewed the patient's medical records. Screening: Per USPSTF and CDC recommendations, given the prevalence of disease in our region, it is our hospital?s policy to screen for HIV and viral Hepatitis for all patients aged 18 and over and those with ongoing risk factors. Chris Inquiry Pt receiving controlled substance: No Vital Signs: 07/27/24 15:33 Temperature 97.9 F Temperature Source Oral Pulse Rate [Left Radial] 65 Respiratory Rate 18 Blood Pressure [Left Arm] 109/65 L Blood Pressure Mean [Left Arm] 79 02 Sat by Pulse Oximetry 98 Lab Data Lab results reviewed: Yes I reviewed the patient's lab results.
[2024-07-27 15:55] LABS: UTC Influenza A Antigen Negative (Negative); UTC Influenza B Antigen Negative (Negative)
[2024-07-27 16:11] VITALS: BP 109/65; PULSE 65; RESP 18; TEMP 36.6
[2024-07-27 16:42] LABS: Coronavirus 19, PCR Not Detected (NotDetected); Influenza A, PCR Not Detected (NotDetected); Influenza B, PCR Not Detected (NotDetected)
== END 2024-07-27 16:12 | disposition home or self-care (01) ==
PROVIDERS: Emergency Provider Nurse Practitioner Family; PCP Nurse Practitioner Family
DX: J06.9 Acute upper respiratory infection, unspecified (principal); J20.9 Acute bronchitis, unspecified
CPT/HCPCS: 87636; 87804; 99212; G0381

== ENCOUNTER 2024-08-12 12:29 | Emergency (ER) | payer MEDICARE, SELFPAY ==
--- NOTE | 2024-08-12 12:30 | ECG_ITS ---
APPROVED REPORT Exam: Resting ECG HR:70 bpm ECG Measurements Heart Rate 70 AXES DE 164 P 36 QRSd 90 QRS 18 QT 360 T 44 QTc 381 Conclusion SINUS RHYTHM NORMAL ECG UNCONFIRMED REPORT EKG interpreted by me personally. Normal sinus rhythm. No ST elevation or depression. QTc 381. Electronically signed by : SAUL SAAVEDRA, 08/13/2024 06:58:43
--- NOTE | 2024-08-12 12:33 | ED_ITS ---
Discharge Plan Disposition Patient Disposition: Home, Self-Care Condition: Good Prescriptions Prescriptions: No Action doxycycline hyclate 100 mg capsule 100 mg PO Q12H 14 Days Qty: 28 0RF prednisone 20 mg tablet 20 mg PO BID Qty: 10 0RF atorvastatin 40 mg tablet 40 mg PO DAILY Patient Comments: TAKE 1 TABLET BY MOUTH EVERY DAY AT NIGHT olanzapine [Zyprexa] 5 mg tablet 5 mg PO DAILY Patient Comments: 1 tablet by mouth every night hydrocodone-acetaminophen 7.5-325 mg tablet See Rx Instructions .ROUTE .COMPLEX Rx Instructions: see rx levothyroxine [Synthroid] 125 mcg tablet 125 mcg PO DAILY Patient Comments: TAKE ONE TABLET BY MOUTH EVERY MORNING albuterol sulfate 90 mcg/actuation HFA aerosol inhaler See Rx Instructions .ROUTE .COMPLEX Patient Comments: INHALE 2 PUFFS INHALATION ROUTE EVERY 6 HOURS Rx Instructions: INHALE 2 PUFFS INHALATION ROUTE EVERY 6 HOURS amoxicillin 500 mg tablet 500 mg PO BID 10 Days Qty: 20 0RF Referrals Follow up/Referrals: Leslie Sawant APRN [Primary Care Provider] - See instructions Activity Restrictions/Add. Instructions Additional Instructions/Restrictions: Follow the instructions on the disimpaction sheet that I gave you. In short you need to drink 10 capfuls of MiraLAX in 32 ounces of liquid of your choice just not lemon douglas color or orange. Follow-up with your PCP in 48 hours for recheck. If you have continued new or worsening signs or symptoms follow-up with your PCP sooner or return to the ER as needed. Clinical Impressions Clinical Impression: Abdominal pain, acute, Constipation Instructions Patient Instructions: DI for Acute Abdominal Pain Print Language Print Language: Swiss Discharge ED Provider: Osei Agee General Adult HPI <CLAUDIO Cedeno - Last Filed: 08/12/24 14:45> General Chief complaint: Abdominal Pain Stated complaint: Chest Pain Time Seen by Provider: 08/12/24 12:33 History of Present Illness HPI narrative: Patient presents for evaluation of epigastric abdominal pain. Patient gives a 2-week history of intermittent epigastric abdominal pain. He denies any nausea vomiting diarrhea shortness of breath fever chills hemoptysis hematochezia melena nausea vomiting diarrhea. He has no aggravating or relieving factors and is not worse or better with food. He is a non-smoker does chew tobacco and has a past medical history of hyperlipidemia hypothyroidism and reported history of diabetes not currently on any medication. He does not have a cardiac history. His report Related Data Home Medications ?Medication ?Instructions ?Recorded ?Confirmed albuterol sulfate 90 mcg/actuation See Rx Instructions .Route .COMPLEX 10/18/23 08/12/24 aerosol inhaler atorvastatin 40 mg tablet 40 mg PO DAILY 10/18/23 08/12/24 hydrocodone 7.5 mg-acetaminophen See Rx Instructions .Route .COMPLEX 10/18/23 08/12/24 325 mg tablet levothyroxine 125 mcg tablet 125 mcg PO DAILY 10/18/23 08/12/24 (Synthroid) olanzapine 5 mg tablet (Zyprexa) 5 mg PO DAILY 10/18/23 08/12/24 Previous Rx's ?Medication ?Instructions ?Recorded amoxicillin 500 mg tablet 500 mg PO BID 10 days #20 tabs 10/18/23 doxycycline hyclate 100 mg capsule 100 mg PO Q12H 14 days #28 caps 10/22/23 prednisone 20 mg tablet 20 mg PO BID #10 tabs 07/27/24 Allergies Allergy/AdvReac Type Severity Reaction Status Date / Time No Known Allergies Allergy Verified 10/18/23 17:52 [facility] <CLAUDIO Cedeno - Last Filed: 08/12/24 14:45> [facility] Disclaimer: The information contained in this section may have been updated after the patient was seen, as this information can be updated by other users. 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 Smoking Status: Never smoker alcohol intake: never current occupational status: other Travel in the last 8 weeks: None Have you lived/traveled outside US in past 30 days?: No Contact w/someone who lives/traveled outside US past 30 days?: No Exposure to someone with infectious disease in past 14 days?: No Do you have a fever (greater than 100.4 F or 38 C)?: No Have you tested positive for COVID-19: No Exposed to someone with COVID-19 in past 14 days?: No Do you have a sore throat?: No Do you have a cough?: Yes Do you have any weakness?: No Do you have any diarrhea?: No Are you experiencing any unusual bleeding?: No Do you have any muscle aches/pain?: No Do you have any abdominal pain?: No Are you experiencing loss of taste or smell?: No <CLAUDIO Cedeno - Last Filed: 08/12/24 14:45> ROS Obtained: Yes Systems reviewed as appropriate & no additional complaints except as documented Physical Exam <CLAUDIO Cedeno - Last Filed: 08/12/24 14:45> General General appearance: alert and in no apparent distress Respiratory Respiratory exam: Present normal lung sounds bilaterally Cardiovascular Cardiovascular exam: Present regular rate Neurological Exam Neurological exam: Present alert and oriented X3 Medical Decision Making <CLAUDIO Cedeno - Last Filed: 08/12/24 14:45> Medical Records Medical records reviewed: Yes I reviewed the patient's medical records. Screening: Per USPSTF and CDC recommendations, given the prevalence of disease in our region, it is our hospital?s policy to screen for HIV and viral Hepatitis for all patients aged 18 and over and those with ongoing risk factors. Chris Inquiry Pt receiving controlled substance: No Vital Signs: 08/12/24 12:35 08/12/24 12:45 08/12/24 13:15 Temperature 98.3 F Temperature Source Oral Pulse Rate 65 61 Pulse Rate [Right] 69 Respiratory Rate 18 19 13 Blood Pressure 142/75 H Blood Pressure [Right Arm] 156/80 H Blood Pressure Mean Blood Pressure Mean [Right Arm] 105 Blood Pressure Source Blood Pressure Source [Right Arm] Automatic Cuff Blood Pressure Position Blood Pressure Position [Right Arm] Sitting 02 Sat by Pulse Oximetry 96 99 98 Oxygen Delivery Method Room Air Room Air Room Air 08/12/24 14:00 08/12/24 14:52 Temperature 97.9 F Temperature Source Oral Pulse Rate 62 60 Pulse Rate [Right] Respiratory Rate 23 18 Blood Pressure 111/71 101/57 L Blood Pressure [Right Arm] Blood Pressure Mean 86 Blood Pressure Mean [Right Arm] Blood Pressure Source Automatic Cuff Blood Pressure Source [Right Arm] Blood Pressure Position Sitting Blood Pressure Position [Right Arm] 02 Sat by Pulse Oximetry 99 Oxygen Delivery Method Room Air Room Air Lab Data Lab results reviewed: Yes I reviewed the patient's lab results. Lab Results 08/12/24 12:35: WBC 13.1 H, RBC 5.30, Hgb 15.8, Hct 47.5, MCV 89.6, MCH 29.8, MCHC 33.3, RDW 14.6, Plt Count 186, MPV 11.2 H, Neut % (Auto) 75.8, Lymph % (Auto) 16.6, Rogers % (Auto) 5.0, Eos % (Auto) 2.1, Baso % (Auto) 0.1, Neut # (Auto) 10.0 H, Lymph # (Auto) 2.2, Rogers # (Auto) 0.7, Eos # (Auto) 0.3, Baso # (Auto) 0.0, PT 10.5, INR 0.94, Sodium 137, Potassium 4.1, Chloride 100, Carbon Dioxide 30, Anion Gap 11.1, BUN 16, Creatinine 1.40 H, Estimated Creat Clear 59, Estimated GFR 50 L, Est GFR ( Amer) 60, Glucose 197 H, Calcium 9.3, Total Bilirubin 0.8, AST 29, ALT 21, Alkaline Phosphatase 111, Troponin I < 0.01, NT-Pro-B Natriuret Pep 22.7, Total Protein 7.6, Albumin 4.3, Globulin 3.3 H, Albumin/Globulin Ratio 1.3, Lipase 86 08/12/24 12:38: SARS-CoV-2 (PCR) Not detected, Influenza A Untype (PCR) Not detected, Influenza Type B (PCR) Not detected 08/12/24 12:35 08/12/24 12:35 Orders (Tests/Meds): ED MEDICATIONS Discontinued Medications Generic Name Dose Route Start Last Admin Trade Name Freq PRN Reason Stop Dose Admin Belladonna Alkaloids 60 ml 08/12/24 12:35 08/12/24 12:42 Belladonna Alkaloids 60 Ml Ml PO 08/12/24 12:36 60 ml ONCE ONE Administration Iopamidol 75 ml 08/12/24 13:33 08/12/24 13:34 Iopamidol-370 (76%);100ml Bottle IV 08/12/24 13:34 75 ml ONCE ONE Administration Sodium Chloride 10 ml 08/12/24 13:33 08/12/24 13:34 Sodium Chloride 0.9% 10ml Syr (Rad Only) IV 09/11/24 13:32 10 ml NEEDED PRN Administration Maintain IV Site ORDERS Category Date Time Status CT abdomen pelvis w con Stat Cat Scan 08/12/24 12:55 Completed Chest XR 2 view (NOT portable) [XR chest 2V] Stat Exams 08/12/24 12:34 Completed BNP [NT Pro Brain Natriuretic Pep.] Stat Lab 08/12/24 12:35 Completed CBC w/Auto Diff [Complete Blood Count Auto Diff] Stat Lab 08/12/24 12:35 Completed CMP [Comprehensive Metabolic Panel] Stat Lab 08/12/24 12:35 Completed INR [Prothrombin Time INR] Stat Lab 08/12/24 12:35 Completed Lipase Stat Lab 08/12/24 12:35 Completed Rapid PCR Covid and Flu A/B Stat Lab 08/12/24 12:38 Completed Trop I [Troponin I] Stat Lab 08/12/24 12:35 Completed Medical Decision Narrative: In summary patient is a 73-year-old male who presents to the emergency department for evaluation of epigastric abdominal pain. Patient is hemodynamically stable at 156/80 with a pulse of 69 and normal sinus rhythm on the bedside monitor breathing 18 times a minute satting at 96% on room air upon arrival, afebrile at 98.3. Physical exam is remarkable for mild epigastric abdominal tenderness with no rebound or guarding or rigidity. Bowel sounds are normal active. Breath sounds are clear and equal bilaterally to the bases without adventitious sounds, auscultation heart sounds revealing B S1-S2 regular rate and rhythm without murmurs gallops rubs or thrills.. Differential diagnosis includes ACS versus esophagitis versus gastritis versus pancreatitis versus cholelithiasis etc. Initial workup will be conducted with hematologic labs plain film chest x-ray CT scan abdomen pelvis with contrast COVID and flu swabs. Initial interventions include GI cocktail for now. Initial workup reviewed by me and his hematologic labs are nonactionable including an undetectable troponin negative COVID and flu however my informal interpretation of his plain film chest x-ray does show looks to be interstitial lung disease and while he is a never smoker his smokes heavily. My informal interpretation of CT scan abdomen pelvis shows a fairly large stool burden with lots of gas especially in the upper abdominal quadrants and a rectal stool ball with thickening of the rectum. Upon repeat evaluation patient reports that his subjective pain is better. I reaffirmed the patient states that he is having bowel movements of normal quality and caliber. Given this I have referred the patient back to his PCP for recheck and possibly referral for colonoscopy, I disimpaction sheet and also the incidental findings on his chest x-ray suggesting that he may have pulmonary disease and would benefit from pulmonary evaluation as an outpatient. Patient verbalized understanding and agreement <Osei Agee MD - Last Filed: 08/12/24 20:06> Vital Signs: 08/12/24 12:35 08/12/24 12:45 08/12/24 13:15 Temperature 98.3 F Temperature Source Oral Pulse Rate 65 61 Pulse Rate [Right] 69 Respiratory Rate 18 19 13 Blood Pressure 142/75 H Blood Pressure [Right Arm] 156/80 H Blood Pressure Mean Blood Pressure Mean [Right Arm] 105 Blood Pressure Source Blood Pressure Source [Right Arm] Automatic Cuff Blood Pressure Position Blood Pressure Position [Right Arm] Sitting 02 Sat by Pulse Oximetry 96 99 98 Oxygen Delivery Method Room Air Room Air Room Air 08/12/24 14:00 08/12/24 14:52 Temperature 97.9 F Temperature Source Oral Pulse Rate 62 60 Pulse Rate [Right] Respiratory Rate 23 18 Blood Pressure 111/71 101/57 L Blood Pressure [Right Arm] Blood Pressure Mean 86 Blood Pressure Mean [Right Arm] Blood Pressure Source Automatic Cuff Blood Pressure Source [Right Arm] Blood Pressure Position Sitting Blood Pressure Position [Right Arm] 02 Sat by Pulse Oximetry 99 Oxygen Delivery Method Room Air Room Air Lab Data Lab Results 08/12/24 12:35: WBC 13.1 H, RBC 5.30, Hgb 15.8, Hct 47.5, MCV 89.6, MCH 29.8, MCHC 33.3, RDW 14.6, Plt Count 186, MPV 11.2 H, Neut % (Auto) 75.8, Lymph % (Auto) 16.6, Rogers % (Auto) 5.0, Eos % (Auto) 2.1, Baso % (Auto) 0.1, Neut # (Auto) 10.0 H, Lymph # (Auto) 2.2, Rogers # (Auto) 0.7, Eos # (Auto) 0.3, Baso # (Auto) 0.0, PT 10.5, INR 0.94, Sodium 137, Potassium 4.1, Chloride 100, Carbon Dioxide 30, Anion Gap 11.1, BUN 16, Creatinine 1.40 H, Estimated Creat Clear 59, Estimated GFR 50 L, Est GFR ( Amer) 60, Glucose 197 H, Calcium 9.3, Total Bilirubin 0.8, AST 29, ALT 21, Alkaline Phosphatase 111, Troponin I < 0.01, NT-Pro-B Natriuret Pep 22.7, Total Protein 7.6, Albumin 4.3, Globulin 3.3 H, Albumin/Globulin Ratio 1.3, Lipase 86 08/12/24 12:38: SARS-CoV-2 (PCR) Not detected, Influenza A Untype (PCR) Not detected, Influenza Type B (PCR) Not detected Orders (Tests/Meds): ED MEDICATIONS Discontinued Medications Generic Name Dose Route Start Last Admin Trade Name Freq PRN Reason Stop Dose Admin Belladonna Alkaloids 60 ml 08/12/24 12:35 08/12/24 12:42 Belladonna Alkaloids 60 Ml Ml PO 08/12/24 12:36 60 ml ONCE ONE Administration Iopamidol 75 ml 08/12/24 13:33 08/12/24 13:34 Iopamidol-370 (76%);100ml Bottle IV 08/12/24 13:34 75 ml ONCE ONE Administration Sodium Chloride 10 ml 08/12/24 13:33 08/12/24 13:34 Sodium Chloride 0.9% 10ml Syr (Rad Only) IV 09/11/24 13:32 10 ml NEEDED PRN Administration Maintain IV Site ORDERS Category Date Time Status CT abdomen pelvis w con Stat Cat Scan 08/12/24 12:55 Completed Chest XR 2 view (NOT portable) [XR chest 2V] Stat Exams 08/12/24 12:34 Completed BNP [NT Pro Brain Natriuretic Pep.] Stat Lab 08/12/24 12:35 Completed CBC w/Auto Diff [Complete Blood Count Auto Diff] Stat Lab 08/12/24 12:35 Completed CMP [Comprehensive Metabolic Panel] Stat Lab 08/12/24 12:35 Completed INR [Prothrombin Time INR] Stat Lab 08/12/24 12:35 Completed Lipase Stat Lab 08/12/24 12:35 Completed Rapid PCR Covid and Flu A/B Stat Lab 08/12/24 12:38 Completed Trop I [Troponin I] Stat Lab 08/12/24 12:35 Completed Medical Decision Narrative: In summary patient is a 73-year-old male who presents to the emergency department for evaluation of epigastric abdominal pain. Patient is hemodynamically stable at 156/80 with a pulse of 69 and normal sinus rhythm on the bedside monitor breathing 18 times a minute satting at 96% on room air upon arrival, afebrile at 98.3. Physical exam is remarkable for mild epigastric abdominal tenderness with no rebound or guarding or rigidity. Bowel sounds are normal active. Breath sounds are clear and equal bilaterally to the bases without adventitious sounds, auscultation heart sounds revealing B S1-S2 regular rate and rhythm without murmurs gallops rubs or thrills.. Differential diagnosis includes ACS versus esophagitis versus gastritis versus pancreatitis versus cholelithiasis etc. Initial workup will be conducted with hematologic labs plain film chest x-ray CT scan abdomen pelvis with contrast COVID and flu swabs. Initial interventions include GI cocktail for now. Initial workup reviewed by me and his hematologic labs are nonactionable including an undetectable troponin negative COVID and flu however my informal interpretation of his plain film chest x-ray does show looks to be interstitial lung disease and while he is a never smoker his smokes heavily. My informal interpretation of CT scan abdomen pelvis shows a fairly large stool burden with lots of gas especially in the upper abdominal quadrants and a rectal stool ball with thickening of the rectum. Upon repeat evaluation patient reports that his subjective pain is better. I reaffirmed the patient states that he is having bowel movements of normal quality and caliber. Given this I have referred the patient back to his PCP for recheck and possibly referral for colonoscopy, I disimpaction sheet and also the incidental findings on his chest x-ray suggesting that he may have pulmonary disease and would benefit from pulmonary evaluation as an outpatient. Patient verbalized understanding and agreement I was consulted by the MAGALIE, and we discussed the complexity of the problems being addressed. I approve the treatment and management plan for this patient's care in the emergency department, thus performing a substantive portion of the medical decision making. Osei Agee MD Critical Care <CLAUDIO Cedeno - Last Filed: 08/12/24 14:45> Critical Care Time Critical Care Time: No
--- NOTE | 2024-08-12 12:34 | XR_ITS ---
FINAL REPORT CLINICAL HISTORY: Chest pain COMPARISON: 10/22/2023 FINDINGS: There is stable diffuse interstitial prominence compatible with chronic interstitial lung disease. No acute pulmonary density is evident. There is no evidence of effusion. The mediastinum has a normal appearance. The cardiac silhouette is unremarkable. IMPRESSION: Chronic interstitial changes without acute process. Reviewed, Interpreted and Dictated by Reuben Flores MD Transcribed by Mariam Tariq Authenticated and [facility]
[2024-08-12 12:35] VITALS: BP 156/80; PULSE 69; RESP 18; TEMP 36.8; O2SAT 96; BMI 27.5
[2024-08-12 12:42] LABS: Coronavirus 19, PCR Not Detected (NotDetected); Influenza A, PCR Not Detected (NotDetected); Influenza B, PCR Not Detected (NotDetected)
[2024-08-12] MEDS: BELLADONNA ALKALOIDS 60 ML ML PO (12:42)
[2024-08-12 12:45] VITALS: BP 142/75; PULSE 65; RESP 19; O2SAT 99
[2024-08-12 12:53] LABS: Basophils % 0.1 % (0.1-2.0); Eosinophils # 0.3 K/mm3 (0.0-0.4); Eosinophils % 2.1 % (0.1-12.0); Hematocrit 47.5 % (42.0-52.0); Hemoglobin 15.8 g/dL (14.1-18.0); Lymphocytes # 2.2 K/mm3 (0.7-4.5); Lymphocytes % 16.6 % (10-50); Mean Corpuscular HGB Conc 33.3 g/dL (31.8-35.4); Mean Corpuscular Hemoglobin 29.8 pg (27.0-31.2); Mean Corpuscular Volume 89.6 fl (80-94); Mean Platelet Volume 11.2 fl (7.4-10.4); Monocytes # 0.7 K/mm3 (0.1-1.0); Neutrophils % 75.8 % (37.0-80.0); Platelet Count 186 K/mm3 (142-424); Red Cell Distribution Width 14.6 % (11.5-17.5); White Blood Count 13.1 K/mm3 (4.8-10.8)
--- NOTE | 2024-08-12 12:55 | CT_ITS ---
FINAL REPORT TECHNIQUE: After the administration of intravenous contrast, axial images were obtained through the abdomen and pelvis by computed tomography. This study was performed with technique to keep radiation doses as low as reasonably achievable, (ALARA). Individualized dose reduction techniques using automated exposure control or adjustment of the MA and/or KV according to the patient's size were employed. CLINICAL HISTORY: Epigastric abdominal pain FINDINGS: Abdomen: The lung bases demonstrate interstitial changes which are likely chronic. The liver is normal in size and attenuation. Gallbladder is unremarkable. The spleen is unremarkable. The adrenals are normal. The pancreas is unremarkable. The kidneys enhance appropriately. There are left renal cysts measuring up to 42 mm. The aorta is normal in caliber. There is no free fluid or adenopathy. There is mild fecal impaction without evidence of bowel obstruction. Pelvis: Appendix is normal. There is a tiny umbilical hernia containing fat. Small bilateral inguinal hernias are also seen containing fat. The urinary bladder and prostate are unremarkable. There is no free fluid or adenopathy. IMPRESSION: No acute intra-abdominal process. Reviewed, Interpreted and Dictated by Reuben Flores MD Transcribed by Kristi Latif Authenticated and [facility]
[2024-08-12 13:04] LABS: Albumin Level 4.3 g/dl (3.5-5.0); Chloride 100 mmol/L (98-107); Sodium 137 mmol/L (136-145)
[2024-08-12 13:05] LABS: Potassium 4.1 mmoL/L (3.5-5.1)
[2024-08-12 13:06] LABS: INR 0.94 (0.9-1.1); Prothrombin Time 10.5 seconds (9.2-12.1)
[2024-08-12 13:07] LABS: Alanine Aminotransferase 21 U/L (12-78); Albumin/Globulin Ratio 1.3 (1.1-1.8); Alkaline Phosphatase 111 U/L (38-126); Anion Gap 11.1 mEq/L (5-15); Aspartate Amino Transferase 29 U/L (17-59); Bilirubin,Total 0.8 mg/dl (0.2-1.3); Blood Urea Nitrogen 16 mg/dl (9-20); Calcium 9.3 mg/dl (8.4-10.2); Carbon Dioxide 30 mmol/L (22.0-30.0); Creatinine Clearance Estimated 59 mL/min (50-200); Estimated Glomerular Filt Rate 50 ml/min (>60); GFR (African American) 60 ML/MIN (>60); Globulin 3.3 g/dL (1.3-3.2); Glucose 197 mg/dl (74-100); Lipase 86 U/L (23-300); Total Protein,Serum 7.6 g/dl (6.3-8.2)
[2024-08-12 13:15] VITALS: PULSE 61; RESP 13; O2SAT 98
[2024-08-12 13:27] LABS: Troponin I < 0.01 ng/ml (0.00-0.034)
[2024-08-12 13:31] LABS: NT Pro Brain Natriuretic Pep. 22.7 pg/mL (0-125)
[2024-08-12] MEDS: IOPAMIDOL-370 (76%);100ML BOTTLE 75 ML IV (13:34)
[2024-08-12] MEDS: SODIUM CHLORIDE 0.9% 10ML SYR (RAD ONLY) 10 ML IV (13:34)
[2024-08-12 14:00] VITALS: BP 111/71; PULSE 62; RESP 23; O2SAT 99
[2024-08-12 14:52] VITALS: BP 101/57; PULSE 60; RESP 18; TEMP 36.6; O2SAT 98
== END 2024-08-12 14:56 | disposition home or self-care (01) ==
PROVIDERS: Physician Assistant; Emergency Provider Student in an Organized Health Care Education/Training Program; PCP Nurse Practitioner Family
DX: K59.00 Constipation, unspecified (principal); R10.13 Epigastric pain
CPT/HCPCS: 71046; 74177; 80053; 83690; 83880; 84484; 85025; 85610; 87636; 93005; 99285; Q9967

== ENCOUNTER 2024-09-02 21:31 | Emergency (ER) | payer MEDICARE, SELFPAY ==
[2024-09-02 22:29] VITALS: BP 149/70; PULSE 75; RESP 18; TEMP 36.6; O2SAT 99; BMI 27.5
--- NOTE | 2024-09-02 22:58 | ED_ITS ---
Discharge Plan Disposition Patient Disposition: Home, Self-Care Prescriptions Prescriptions: New amoxicillin-pot clavulanate 875-125 mg tablet 1 tab PO BID 7 Days Qty: 14 0RF nicotine 21 mg/24 hr patch 24 hour 1 patch transdermal DAILY Qty: 14 0RF No Action doxycycline hyclate 100 mg capsule 100 mg PO Q12H 14 Days Qty: 28 0RF prednisone 20 mg tablet 20 mg PO BID Qty: 10 0RF atorvastatin 40 mg tablet 40 mg PO DAILY Patient Comments: TAKE 1 TABLET BY MOUTH EVERY DAY AT NIGHT olanzapine [Zyprexa] 5 mg tablet 5 mg PO DAILY Patient Comments: 1 tablet by mouth every night hydrocodone-acetaminophen 7.5-325 mg tablet See Rx Instructions .ROUTE .COMPLEX Rx Instructions: see rx levothyroxine [Synthroid] 125 mcg tablet 125 mcg PO DAILY Patient Comments: TAKE ONE TABLET BY MOUTH EVERY MORNING albuterol sulfate 90 mcg/actuation HFA aerosol inhaler See Rx Instructions .ROUTE .COMPLEX Patient Comments: INHALE 2 PUFFS INHALATION ROUTE EVERY 6 HOURS Rx Instructions: INHALE 2 PUFFS INHALATION ROUTE EVERY 6 HOURS amoxicillin 500 mg tablet 500 mg PO BID 10 Days Qty: 20 0RF Referrals Follow up/Referrals: Leslie Sawant APRN [Primary Care Provider] - See instructions Activity Restrictions/Add. Instructions Additional Instructions/Restrictions: Please take antibiotics as prescribed and monitor for signs of infection. Please follow up for wound check with PCP. Clinical Impressions Clinical Impression: Dog bite of face, Laceration of face Instructions Patient Instructions: Animal Bites Print Language Print Language: Turkmen Discharge ED Provider: Chandler Barrios General Adult HPI <Jimbo Gleason MD - Last Filed: 09/02/24 23:29> General Chief complaint: Animal Bite Stated complaint: AO 09/02/24 2100 dog bite to right side of face Time Seen by Provider: 09/02/24 22:49 Mode of Arrival: Ambulatory Description of Symptoms (Recalled from ER Triage Doc. by RN): Pt presents to ED for a dog bite to the R cheek. Pt states they know the dog and the dog is UTD on rabies vaccine. Pt states dog just bit him and walked away. Pt has open laceration on R cheek. History of Present Illness HPI narrative: Patient is a 73-year-old male presenting today with a dog bite to the right aspect of his face. States he was bending down to feed his son's dog when he got in the dog's face and bit him in the mouth. The dog has been vaccinated against rabies has otherwise been acting normal. No concerns for rabies in that particular dog. Patient on sure is to his last tetanus vaccination Related Data Home Medications ?Medication ?Instructions ?Recorded ?Confirmed albuterol sulfate 90 mcg/actuation See Rx Instructions .Route .COMPLEX 10/18/23 08/12/24 aerosol inhaler atorvastatin 40 mg tablet 40 mg PO DAILY 10/18/23 08/12/24 hydrocodone 7.5 mg-acetaminophen See Rx Instructions .Route .COMPLEX 10/18/23 08/12/24 325 mg tablet levothyroxine 125 mcg tablet 125 mcg PO DAILY 10/18/23 08/12/24 (Synthroid) olanzapine 5 mg tablet (Zyprexa) 5 mg PO DAILY 10/18/23 08/12/24 Previous Rx's ?Medication ?Instructions ?Recorded amoxicillin 500 mg tablet 500 mg PO BID 10 days #20 tabs 10/18/23 doxycycline hyclate 100 mg capsule 100 mg PO Q12H 14 days #28 caps 10/22/23 prednisone 20 mg tablet 20 mg PO BID #10 tabs 07/27/24 amoxicillin 875 mg-potassium 1 tab PO BID 7 days #14 tabs 09/03/24 clavulanate 125 mg tablet nicotine 21 mg/24 hr daily 1 patch transdermal DAILY #14 ea 09/03/24 transdermal patch Allergies Allergy/AdvReac Type Severity Reaction Status Date / Time No Known Allergies Allergy Verified 10/18/23 17:52 [facility] <J Refugio Gleason MD - Last Filed: 09/02/24 23:29> [facility] Disclaimer: The information contained in this section may have been updated after the patient was seen, as this information can be updated by other users. 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 Smoking Status: Unknown if ever smoked alcohol intake: never current occupational status: other Travel in the last 8 weeks: None Have you lived/traveled outside [place] in past 30 days?: No Contact w/someone who lives/traveled outside US past 30 days?: No Exposure to someone with infectious disease in past 14 days?: No Do you have a fever (greater than 100.4 F or 38 C)?: No Have you tested positive for COVID-19: No Exposed to someone with COVID-19 in past 14 days?: No Do you have a sore throat?: No Do you have a cough?: No Do you have any weakness?: No Do you have any diarrhea?: No Are you experiencing any unusual bleeding?: No Do you have any muscle aches/pain?: No Do you have any abdominal pain?: No Are you experiencing loss of taste or smell?: No <Jimbo Gleason MD - Last Filed: 09/02/24 23:29> ROS Obtained: Yes All systems reviewed & no additional complaints except as documented Physical Exam <Jimbo Gleason MD - Last Filed: 09/02/24 23:29> General General appearance: alert and in no apparent distress Expanded Head Exam Head image: 2 1. Large gaping wounds tissue loss exposing the musculature Respiratory Respiratory exam: Present normal lung sounds bilaterally Cardiovascular Cardiovascular exam: Present regular rate Neurological Exam Neurological exam: Present alert and oriented X3 Medical Decision Making <Jimbo Gleason MD - Last Filed: 09/02/24 23:29> Medical Records Screening: Per USPSTF and CDC recommendations, given the prevalence of disease in our region, it is our hospital?s policy to screen for HIV and viral Hepatitis for all patients aged 18 and over and those with ongoing risk factors. Chris Inquiry Pt receiving controlled substance: No Vital Signs: 09/02/24 22:29 09/03/24 00:29 Temperature 97.9 F 98.9 F Temperature Source Tympanic Temporal Artery Scan Pulse Rate 77 Pulse Rate [Left] 75 Respiratory Rate 18 18 Blood Pressure 131/73 Blood Pressure [Right Arm] 149/70 H Blood Pressure Mean [Right Arm] 96 02 Sat by Pulse Oximetry 99 Oxygen Delivery Method Room Air Room Air Orders (Tests/Meds): ED MEDICATIONS Discontinued Medications Generic Name Dose Route Start Last Admin Trade Name Freq PRN Reason Stop Dose Admin Amoxicillin/Clavulanate Potassium 1 each 09/02/24 22:53 09/02/24 23:14 Amoxicillin/Clavulanate Potassium 875/125mg Tablet PO 09/02/24 22:54 1 each ONCE ONE Administration Lidocaine/Epinephrine 20 ml 09/02/24 23:00 Lidocaine 1% W/Epi 1:100,000 20ml Vial SQ 09/02/24 23:01 ONCE ONE Nicotine 21 mg 09/03/24 00:27 Nicotine 21mg/24hr Patch TD 09/03/24 00:28 ONCE ONE Tetanus/Reduced Diphtheria/Acell Pertussis 0.5 ml 09/02/24 22:53 09/02/24 23:13 Tet/Diphth/Pert-Adult 0.5ml Syringe IM 09/02/24 22:54 0.5 ml .ONCE ONE Administration Medical Decision Narrative: Patient with above history and physical. He has a large gaping wound on his face which will need multilayer closure. No concern for rabies in this particular dog. Augmentin and Tdap were given. Care transitioned to Dr. Barrios at 11:[address] Barrios will repair the wound and put a procedure note in. <Chandler Barrios MD - Last Filed: 09/03/24 04:38> Medical Records Medical records reviewed: Yes I reviewed the patient's medical records. Vital Signs: 09/02/24 22:29 09/03/24 00:29 Temperature 97.9 F 98.9 F Temperature Source Tympanic Temporal Artery Scan Pulse Rate 77 Pulse Rate [Left] 75 Respiratory Rate 18 18 Blood Pressure 131/73 Blood Pressure [Right Arm] 149/70 H Blood Pressure Mean [Right Arm] 96 02 Sat by Pulse Oximetry 99 Oxygen Delivery Method Room Air Room Air Orders (Tests/Meds): ED MEDICATIONS Discontinued Medications Generic Name Dose Route Start Last Admin Trade Name Freq PRN Reason Stop Dose Admin Amoxicillin/Clavulanate Potassium 1 each 09/02/24 22:53 09/02/24 23:14 Amoxicillin/Clavulanate Potassium 875/125mg Tablet PO 09/02/24 22:54 1 each ONCE ONE Administration Lidocaine/Epinephrine 20 ml 09/02/24 23:00 Lidocaine 1% W/Epi 1:100,000 20ml Vial SQ 09/02/24 23:01 ONCE ONE Nicotine 21 mg 09/03/24 00:27 Nicotine 21mg/24hr Patch TD 09/03/24 00:28 ONCE ONE Tetanus/Reduced Diphtheria/Acell Pertussis 0.5 ml 09/02/24 22:53 09/02/24 23:13 Tet/Diphth/Pert-Adult 0.5ml Syringe IM 09/02/24 22:54 0.5 ml .ONCE ONE Administration Medical Decision Narrative: Patient with above history and physical. He has a large gaping wound on his face which will need multilayer closure. No concern for rabies in this particular dog. Augmentin and Tdap were given. Care transitioned to Dr. Barrios at 11:[address] Barrios will repair the wound and put a procedure note in. Denis GONZALEZ: I assumed care of the patient at the time of handoff from the prior provider. Wound was copiously irrigated and repaired at bedside by me with absorbable sutures. Patient was given instructions regarding wound care and return precautions and discharged with Augmentin prescription. Procedures <Chandler Barrios MD - Last Filed: 09/03/24 04:38> Laceration Laceration 1: Site: face (Right cheek extending laterally from the corner of the) Size (cm): 3 Description: irregular and involves mark border Depth: involves subcutaneous layer and involves muscle layer Local Anesthetic: lidocaine 1% and with epi Amount of anesthesia used (mL): 10 Pre-repair: wound explored, irrigated extensively and wound margins revised Skin layer closed with: other (Fast gut) Size (cm): 5-0 Number of sutures: 8 Technique: simple, interrupted and horizontal mattress Subcutaneous layer closed with: vicryl Size: 4-0 Number of sutures: 3 Technique: simple, interrupted Nerve Block Nerve Block 1: Local Anesthetic: lidocaine 1% and with epi Amount of anesthesia used (mL): 5 Side: Right Intraoral Nerve Block: infraorbital Patient Tolerated Procedure: well and no complications Nerve Block 2: Local Anesthetic: lidocaine 1% and with epi Amount of anesthesia used (mL): 5 Intraoral Nerve Block: mental Procedure Successful: Yes Patient Tolerated Procedure: well and no complications Critical Care <Jimbo Gleason MD - Last Filed: 09/02/24 23:29> Critical Care Time Critical Care Time: No
[2024-09-02] MEDS: TET/DIPHTH/PERT-ADULT 0.5ML SYRINGE 0.5 ML IM (23:13)
[2024-09-02] MEDS: AMOXICILLIN/CLAVULANATE POTASSIUM 875/125MG TABLET 1 EACH PO (23:14)
[2024-09-03 00:29] VITALS: BP 131/73; PULSE 77; RESP 18; TEMP 37.2; O2SAT 98
== END 2024-09-03 00:54 | disposition home or self-care (01) ==
PROVIDERS: Emergency Provider Emergency Medicine; PCP Nurse Practitioner Family
DX: S01.81XA Laceration without foreign body of other part of head, initial encounter (principal); S01.85XA Open bite of other part of head, initial encounter; Z23 Encounter for immunization; W54.0XXA Bitten by dog, initial encounter; Y93.89 Activity, other specified; Y92.89 Other specified places as the place of occurrence of the external cause
CPT/HCPCS: 12054; 90471; 90715; 99284

== ENCOUNTER 2024-10-05 20:30 | Emergency (ER) | payer MEDICARE, SELFPAY ==
--- NOTE | 2024-10-05 20:44 | CT_ITS ---
PROCEDURE INFORMATION: Exam: CT Cervical Spine Without Contrast Exam date and time: 10/05/2024 9:44 PM Age: 74 years old Clinical indication: Injury or trauma; Fall; Other: Pain; Additional info: Fall down stairs, back pain TECHNIQUE: Imaging protocol: Computed tomography of the cervical spine without contrast. Radiation optimization: All CT scans at this facility use at least one of these dose optimization techniques: automated exposure control; mA and/or kV adjustment per patient size (includes targeted exams where dose is matched to clinical indication); or iterative reconstruction. COMPARISON: CT HEAD/BRAIN WO CON 10/05/2024 9:42 PM FINDINGS: Bones: Spinal alignment is normal. No fracture or bone destruction. Predental space narrowing consistent with arthritis. Multilevel moderate degenerative disc disease predominantly at C3-C4 and C5-C6 levels with disc space narrowing and disc osteophyte complexes . [id number] multilevel facet arthropathy. Lungs: Lung apices are normal. Soft tissues: Unremarkable. IMPRESSION: 1. Spinal alignment is normal. 2. No fracture or bone destruction. 3. Predental space narrowing consistent with arthritis. 4. Multilevel moderate degenerative disc disease predominantly at C3-C4 and C5-C6 levels with disc space narrowing and disc osteophyte complexes . 5. [id number] multilevel facet arthropathy.
--- NOTE | 2024-10-05 20:44 | CT_ITS ---
PROCEDURE INFORMATION: Exam: CTA Abdomen and Pelvis With Contrast Exam date and time: 10/05/2024 9:47 PM Age: 74 years old Clinical indication: Injury or trauma; Fall; Other: Pain; Additional info: Fall down stairs, diffuse back pain TECHNIQUE: Imaging protocol: Computed tomographic angiography of the abdomen and pelvis with contrast. Exam focused on the arteries. 3D rendering (Not supervised by radiologist): MIP and/or 3D reconstructed images were created by the technologist. Radiation optimization: All CT scans at this facility use at least one of these dose optimization techniques: automated exposure control; mA and/or kV adjustment per patient size (includes targeted exams where dose is matched to clinical indication); or iterative reconstruction. Contrast material: ISOVUE; Contrast volume: 80 ml; Contrast route: INTRAVENOUS (IV); COMPARISON: CT ABDOMEN PELVIS W CON 08/12/2024 1:34 PM FINDINGS: Aorta: No aortic aneurysm. No aortic dissection. Celiac trunk and mesenteric arteries: No occlusion or significant stenosis. Renal arteries: No occlusion or significant stenosis. Right iliac arteries: No occlusion or significant stenosis. Left iliac arteries: No occlusion or significant stenosis. Liver: No mass. Gallbladder and biliary ducts: Unremarkable. No calcified stones. No ductal dilation. Pancreas: Unremarkable. No mass. No ductal dilation. Spleen: Unremarkable. No splenomegaly. Adrenal glands: Unremarkable. No mass. Kidneys and ureters: 4.5 cm simple left renal cyst. No solid mass. No nephroureterolithiasis. No hydronephrosis. Stomach and bowel: Unremarkable. No obstruction. No mucosal thickening. Appendix: Not visualized. No pericecal fat stranding. Intraperitoneal space: Unremarkable. No free air. No significant fluid collection. Lymph nodes: Unremarkable. No enlarged lymph nodes. Urinary bladder: Unremarkable. No mass. Reproductive: Unremarkable as visualized. Bones/joints: No acute fracture. Soft tissues: Unremarkable. IMPRESSION: 1. Unremarkable CTA. 2. No acute findings identified.
--- NOTE | 2024-10-05 20:44 | CT_ITS ---
PROCEDURE INFORMATION: Exam: CTA Chest With Contrast Exam date and time: 10/05/2024 9:47 PM Age: 74 years old Clinical indication: Injury or trauma; Fall; Other: Pain; Additional info: Fall down stairs, back pain TECHNIQUE: Imaging protocol: Computed tomographic angiography of the chest with contrast. Exam focused on the arteries. 3D rendering (Not supervised by radiologist): MIP and/or 3D reconstructed images were created by the technologist. Radiation optimization: All CT scans at this facility use at least one of these dose optimization techniques: automated exposure control; mA and/or kV adjustment per patient size (includes targeted exams where dose is matched to clinical indication); or iterative reconstruction. Contrast material: ISOVUE; Contrast volume: 80 ml; Contrast route: INTRAVENOUS (IV); COMPARISON: CR XR CHEST PORTABLE 10/22/2023 5:17 PM FINDINGS: Pulmonary arteries: No pulmonary emboli. Aorta: Unremarkable. No aortic aneurysm. No aortic dissection. Lungs: Reticuloseptal prominence, mild architectural distortion, mild bronchiectasis in mid to lower lung zone and peripheral predominant distribution. Benign right basilar calcified nodule. Pleural spaces: Unremarkable. No pneumothorax. No pleural effusion. Heart: Unremarkable. No cardiomegaly. No pericardial effusion. Lymph nodes: Calcified right hilar lymph nodes without lymphadenopathy. Bones/joints: Unremarkable. No acute fracture. Soft tissues: Unremarkable. IMPRESSION: 1. No acute findings. 2. Underlying pulmonary fibrotic changes.
--- NOTE | 2024-10-05 20:44 | CT_ITS ---
PROCEDURE INFORMATION: Exam: CT Head Without Contrast Exam date and time: 10/05/2024 9:42 PM Age: 74 years old Clinical indication: Injury or trauma; Fall; Other: Pain; Additional info: Fall down stairs, back pain TECHNIQUE: Imaging protocol: Computed tomography of the head without contrast. Radiation optimization: All CT scans at this facility use at least one of these dose optimization techniques: automated exposure control; mA and/or kV adjustment per patient size (includes targeted exams where dose is matched to clinical indication); or iterative reconstruction. COMPARISON: No relevant prior studies available. FINDINGS: Brain: Normal. No hemorrhage. Unremarkable white matter. No mass effect. Cerebral ventricles: No ventriculomegaly. Pituitary gland and sella: Negative Paranasal sinuses: Visualized sinuses are unremarkable. No fluid levels. Mastoid air cells: Visualized mastoid air cells are well aerated. Orbital cavities: Negative. Bones: Unremarkable. No acute fracture. Soft tissues: Unremarkable. Vasculature: Negative. IMPRESSION: No evidence for intracranial hemorrhage, mass lesions or acute stroke.
[2024-10-05 20:45] VITALS: BP 146/89; PULSE 80; RESP 20; TEMP 36.6; O2SAT 98; BMI 25.8
--- NOTE | 2024-10-05 20:45 | XR_ITS ---
PROCEDURE INFORMATION: Exam: XR Left Hand Exam date and time: 10/05/2024 9:54 PM Age: 74 years old Clinical indication: Injury or trauma; Fall; Other: Pain; Additional info: Mcp trauma TECHNIQUE: Imaging protocol: Radiologic exam of the left hand. Views: 3 or more views. COMPARISON: No relevant prior studies available. FINDINGS: Bones/joints: No acute fracture. Normal alignment. Degenerative changes at multiple joints most pronounced in 1st carpometacarpal joints. Mild osteopenia. Soft tissues: Unremarkable. IMPRESSION: No acute findings.
[2024-10-05] MEDS: METHOCARBAMOL 500MG TABLET 1000 MG PO (20:49)
[2024-10-05] MEDS: ACETAMINOPHEN 1,000MG/100ML VIAL 1000 MG IV (20:50)
[2024-10-05 20:51] LABS: Basophils % 0.1 % (0.1-2.0); Eosinophils # 0.2 Kmm3 (0.0-0.4); Eosinophils % 2.1 % (0.1-12.0); Hematocrit 40.4 % (42.0-52.0); Lymphocytes # 2.5 K/mm3 (0.7-4.5); Mean Corpuscular HGB Conc 34.7 g/dL (31.8-35.4); Mean Corpuscular Hemoglobin 30.4 pg (27.0-31.2); Mean Corpuscular Volume 87.6 fl (80-94); Mean Platelet Volume 10.6 fl (7.4-10.4); Monocytes # 0.8 K/mm3 (0.1-1.0); Monocytes % 8.2 % (1.7-9.3); Neutrophils # 6.3 K/mm3 (1.8-7.8); Neutrophils % 62.8 % (37.0-80.0); Nucleated Red Blood Cells # 0 10^3/uL; Nucleated Red Blood Cells % 0 %; Platelet Count 220 K/mm3 (142-424); Red Blood Count 4.61 M/mm3 (4.60-6.20); Red Cell Distribution Width-SD 41.3 fL
[2024-10-05 20:59] LABS: Chloride 104 mmol/L (98-107)
[2024-10-05 21:00] VITALS: BP 127/75; PULSE 76; O2SAT 97
[2024-10-05 21:00] LABS: Potassium 4.1 mmoL/L (3.5-5.1); Sodium 137 mmol/L (136-145)
[2024-10-05 21:02] LABS: Blood Urea Nitrogen 12 mg/dl (9-20); Creatinine Clearance Estimated 57 mL/min (50-200); Estimated Glomerular Filt Rate 54 ml/min (>60); GFR (African American) 65 ML/MIN (>60)
[2024-10-05 21:03] LABS: Alanine Aminotransferase 33 U/L (12-78); Albumin/Globulin Ratio 1.2 (1.1-1.8); Alkaline Phosphatase 109 U/L (38-126); Anion Gap 12.1 mEq/L (5-15); Aspartate Amino Transferase 56 U/L (17-59); Bilirubin,Total 0.7 mg/dl (0.2-1.3); Calcium 9.2 mg/dl (8.4-10.2); Carbon Dioxide 25 mmol/L (22.0-30.0); Globulin 3.4 g/dL (1.3-3.2); Glucose 136 mg/dl (74-100); Total Protein,Serum 7.4 g/dl (6.3-8.2)
--- NOTE | 2024-10-05 21:20 | ED_ITS ---
Discharge Plan Disposition Patient Disposition: Home, Self-Care Chief Complaint: Fall Prescriptions Prescriptions: No Action doxycycline hyclate 100 mg capsule 100 mg PO Q12H 14 Days Qty: 28 0RF prednisone 20 mg tablet 20 mg PO BID Qty: 10 0RF atorvastatin 40 mg tablet 40 mg PO DAILY Patient Comments: TAKE 1 TABLET BY MOUTH EVERY DAY AT NIGHT olanzapine [Zyprexa] 5 mg tablet 5 mg PO DAILY Patient Comments: 1 tablet by mouth every night hydrocodone-acetaminophen 7.5-325 mg tablet See Rx Instructions .ROUTE .COMPLEX Rx Instructions: see rx levothyroxine [Synthroid] 125 mcg tablet 125 mcg PO DAILY Patient Comments: TAKE ONE TABLET BY MOUTH EVERY MORNING albuterol sulfate 90 mcg/actuation HFA aerosol inhaler See Rx Instructions .ROUTE .COMPLEX Patient Comments: INHALE 2 PUFFS INHALATION ROUTE EVERY 6 HOURS Rx Instructions: INHALE 2 PUFFS INHALATION ROUTE EVERY 6 HOURS amoxicillin 500 mg tablet 500 mg PO BID 10 Days Qty: 20 0RF amoxicillin-pot clavulanate 875-125 mg tablet 1 tab PO BID 7 Days Qty: 14 0RF nicotine 21 mg/24 hr patch 24 hour 1 patch transdermal DAILY Qty: 14 0RF Referrals Follow up/Referrals: Leslie Sawant APRN [Primary Care Provider] - See instructions Clinical Impressions Clinical Impression: Fall down stairs, Back pain Print Language Print Language: Macedonian Discharge ED Provider: Amos Khalil General Adult HPI General Chief complaint: Fall Stated complaint: AO 10/05/241999 fell, back pain, hand pain, bruise Time Seen by Provider: 10/05/24 20:38 Mode of Arrival: Ambulatory Source of Information: Patient and Significant Other Description of Symptoms (Recalled from ER Triage Doc. by RN): pt reports that he and his were coming upstairs from doing laundry when he lost his balance and they fell backwards down approximately 10-15 steps. pt denies any LOC or any blood thinners. History of Present Illness HPI narrative: Patient is 74-year-old male with no pertinent past medical history not on anticoagulants who presents emergency department for evaluation of traumatic injury sustained in a fall. Patient lost his balance and fell down approximate 10-15 stairs with his , no loss of consciousness. He is complaining of back pain in his mid back but otherwise is not complaining of any pain. He did hit his left dorsal hand on the hand while on the way down. Tdap is up-to-date. No other acute complaints at this time. Please note that above description of symptoms, in this electronic medical record under categorization of recalled from ER triage doctor by RN are reflective of an initial nursing assessment, however, is not reflective of my full history and physical exam that was personally taken and clarified. Consequentially, this preceding description of symptoms, which may include the patient's categorized chief complaint in the EMR, do not reflect my personal clinical impression, and the ultimate description of history of present illness and patient stated complaints should be deferred to this section of the note. Unless stated otherwise or congruent with this section of the note, additional signs, symptoms, or incongruence should be interpreted as inaccurate with my clinical impression. Related Data Home Medications ?Medication ?Instructions ?Recorded ?Confirmed albuterol sulfate 90 mcg/actuation See Rx Instructions .Route .COMPLEX 10/18/23 08/12/24 aerosol inhaler atorvastatin 40 mg tablet 40 mg PO DAILY 10/18/23 08/12/24 hydrocodone 7.5 mg-acetaminophen See Rx Instructions .Route .COMPLEX 10/18/23 08/12/24 325 mg tablet levothyroxine 125 mcg tablet 125 mcg PO DAILY 10/18/23 08/12/24 (Synthroid) olanzapine 5 mg tablet (Zyprexa) 5 mg PO DAILY 10/18/23 08/12/24 Previous Rx's ?Medication ?Instructions ?Recorded amoxicillin 500 mg tablet 500 mg PO BID 10 days #20 tabs 10/18/23 doxycycline hyclate 100 mg capsule 100 mg PO Q12H 14 days #28 caps 10/22/23 prednisone 20 mg tablet 20 mg PO BID #10 tabs 07/27/24 amoxicillin 875 mg-potassium 1 tab PO BID 7 days #14 tabs 09/03/24 clavulanate 125 mg tablet nicotine 21 mg/24 hr daily 1 patch transdermal DAILY #14 ea 09/03/24 transdermal patch Allergies Allergy/AdvReac Type Severity Reaction Status Date / Time No Known Allergies Allergy Verified 10/18/23 17:52 [facility] Disclaimer: The information contained in this section may have been updated after the patient was seen, as this information can be updated by other users. 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 Smoking Status: Unknown if ever smoked alcohol intake: never current occupational status: other Travel in the last 8 weeks: None Have you lived/traveled outside [place] in past 30 days?: No Contact w/someone who lives/traveled outside [place] past 30 days?: No Exposure to someone with infectious disease in past 14 days?: No Do you have a fever (greater than 100.4 F or 38 C)?: No Have you tested positive for COVID-19: No Exposed to someone with COVID-19 in past 14 days?: No Do you have a sore throat?: No Do you have a cough?: No Do you have any weakness?: No Do you have any diarrhea?: No Are you experiencing any unusual bleeding?: No Do you have any muscle aches/pain?: Yes Do you have any abdominal pain?: No Are you experiencing loss of taste or smell?: No ROS Obtained: Yes Systems reviewed as appropriate & no additional complaints except as documented Physical Exam General General appearance: alert and in no apparent distress Head Head exam: atraumatic and normocephalic Eye Eye exam: Present PERRL ENT ENT exam: Present mucous membranes moist Neck Neck exam: Present normal inspection and full ROM; Absent tenderness Chest Chest inspection: Present normal inspection and symmetric chest wall rise Respiratory Respiratory exam: Present normal lung sounds bilaterally; Absent respiratory distress Cardiovascular Cardiovascular exam: Present regular rate and normal rhythm Abdominal Exam Abdominal exam: Present soft; Absent tenderness, guarding or rebound Extremities Exam Extremities exam: Present normal inspection Back Exam Back exam: Present tenderness (Mid thoracic is tender bilateral paraspinal, no cervical lumbar tenderness) Neurological Exam Neurological exam: Present alert and oriented X3; Absent motor sensory deficit Psychiatric Psychiatric exam: Present normal affect Skin Skin exam: Present warm and dry Medical Decision Making Medical Records Screening: Per USPSTF and CDC recommendations, given the prevalence of disease in our region, it is our hospital?s policy to screen for HIV and viral Hepatitis for all patients aged 18 and over and those with ongoing risk factors. Chris Inquiry Pt receiving controlled substance: No Vital Signs: 10/05/24 20:45 10/05/24 21:00 10/05/24 21:30 Temperature 97.9 F Temperature Source Temporal Artery Scan Pulse Rate 76 67 Pulse Rate [Right] 80 Respiratory Rate 20 Blood Pressure 127/75 122/71 Blood Pressure [Right Arm] 146/89 H Blood Pressure Mean [Right Arm] 108 02 Sat by Pulse Oximetry 98 97 96 Oxygen Delivery Method Room Air Room Air Room Air 10/05/24 22:01 Temperature Temperature Source Pulse Rate 78 Pulse Rate [Right] Respiratory Rate Blood Pressure 130/69 Blood Pressure [Right Arm] Blood Pressure Mean [Right Arm] 02 Sat by Pulse Oximetry 96 Oxygen Delivery Method Room Air Lab Data Lab Results 10/05/24 20:40: WBC 10.0, RBC 4.61, Hgb 14.0 L, Hct 40.4 L, MCV 87.6, MCH 30.4, MCHC 34.7, RDW 13.0, Plt Count 220, MPV 10.6 H, Neut % (Auto) 62.8, Lymph % (Auto) 25.0, [place] % (Auto) 8.2, Eos % (Auto) 2.1, Baso % (Auto) 0.1, Neut # (Auto) 6.3, Lymph # (Auto) 2.5, [place] # (Auto) 0.8, Eos # (Auto) 0.2, Baso # (Auto) 0.0, Sodium 137, Potassium 4.1, Chloride 104, Carbon Dioxide 25, Anion Gap 12.1, BUN 12, Creatinine 1.30 H, Estimated Creat Clear 57, Estimated GFR 54 L, Est GFR ( Amer) 65, Glucose 136 H, Calcium 9.2, Total Bilirubin 0.7, AST 56, ALT 33, Alkaline Phosphatase 109, Total Protein 7.4, Albumin 4.0, G lobulin 3.4 H, Albumin/Globulin Ratio 1.2, HCV Ab ROGERS w/Rflx PCR Qn Negative, HIV Ag/Ab Combo Qual Negative 10/05/24 20:40 10/05/24 20:40 Orders (Tests/Meds): ED MEDICATIONS Generic Name Dose Route Start Last Admin Trade Name Freq PRN Reason Stop Dose Admin Sodium Chloride 10 ml 10/05/24 21:51 10/05/24 21:52 Sodium Chloride 0.9% 10ml Syr (Rad Only) IV 11/04/24 21:50 10 ml NEEDED PRN Administration Maintain IV Site Discontinued Medications Generic Name Dose Route Start Last Admin Trade Name Freq PRN Reason Stop Dose Admin Acetaminophen 1,000 mg 10/05/24 20:44 10/05/24 20:50 Acetaminophen 1,000mg/100ml Vial IV 10/05/24 20:45 1,000 mg ONCE ONE Administration Iopamidol 80 ml 10/05/24 21:51 10/05/24 21:52 Iopamidol-370 (76%);100ml Bottle IV 10/05/24 21:52 80 ml ONCE ONE Administration Methocarbamol 1,000 mg 10/05/24 20:45 10/05/24 20:49 Methocarbamol 500mg Tablet PO 10/05/24 20:46 1,000 mg ONCE ONE Administration Sodium Chloride 50 ml 10/05/24 21:51 10/05/24 21:52 0.9 % Sodium Chloride 50 Ml Vial IV 10/05/24 21:52 50 ml ONCE ONE Administration ORDERS Category Date Time Status CT angio abd/pel - TRAUMA Stat Cat Scan 10/05/24 20:[address] angio chest - dissection Stat Cat Scan 10/05/24 20:[address] cervical spine wo con Stat Cat Scan 10/05/24 20:[address] head/brain wo con Stat Cat Scan 10/05/24 20:44 Completed Hand XR left minimum 3 views [XR hand LT min 3V] Stat Exams 10/05/24 20:45 Completed CBC w/Auto Diff [Complete Blood Count Auto Diff] Stat Lab 10/05/24 20:40 Completed CMP [Comprehensive Metabolic Panel] Stat Lab 10/05/24 20:40 Completed HIV Combo Stat Lab 10/05/24 20:40 Completed Hepatitis C Ab Qual. W/ RFX Stat Lab 10/05/24 20:40 Completed Medical Decision Narrative: In summary patient is 74-year-old male with past medical history described above who presents to the emergency department for evaluation of traumatic injury sustained in a fall. Patient is hemodynamically stable nontoxic-appearing upon arrival, afebrile. Patient undergo full trauma survey with noncontrasted CT scan of the head, cervical spine, CTA of the chest, abdomen, pelvis will be obtained. Tdap is up-to-date. Plain film of the left hand will be obtained. Initial inventions include Tylenol, Robaxin. Initial workup reviewed by me, hematologic labs are nonactionable no significant leukocytosis no anemia no GENESIS or critical electrolyte abnormality. Noncontrasted CT scan of the head informally visualized by me and no acute large intra-axial hemorrhage. Radiology trauma survey negative for acute pathology. Upon repeat evaluation c- collar was removed and patient was amatory at bedside and is appropriate for discharge will be discharged with a course of Robaxin. Critical Care Critical Care Time Critical Care Time: No
[2024-10-05 21:30] VITALS: BP 122/71; PULSE 67; O2SAT 96
[2024-10-05 21:45] LABS: HIV Combo NEGATIVE (Negative)
[2024-10-05] MEDS: 0.9 % SODIUM CHLORIDE 50 ML VIAL IV (21:52)
[2024-10-05] MEDS: SODIUM CHLORIDE 0.9% 10ML SYR (RAD ONLY) 10 ML IV (21:52)
[2024-10-05] MEDS: IOPAMIDOL-370 (76%);100ML BOTTLE 80 ML IV (21:52)
[2024-10-05 21:53] LABS: Hepatitis C Ab Qual. W/ RFX NEGATIVE (Negative)
[2024-10-05 22:01] VITALS: BP 130/69; PULSE 78; O2SAT 96
[2024-10-05 22:45] VITALS: BP 124/70; PULSE 87; RESP 18; TEMP 36.6; O2SAT 98
== END 2024-10-05 23:03 | disposition home or self-care (01) ==
PROVIDERS: Emergency Provider Emergency Medicine; PCP Nurse Practitioner Family
DX: M54.6 Pain in thoracic spine (principal); M79.642 Pain in left hand; W10.8XXA Fall (on) (from) other stairs and steps, initial encounter; Z11.59 Encounter for screening for other viral diseases; Z11.4 Encounter for screening for human immunodeficiency virus [HIV]
CPT/HCPCS: 70450; 71275; 72125; 73130; 74174; 80053; 85025; 86803; 87389; 96374; 99285; J0131; Q9967